=== PATIENT | male | born 1985 | race Caucasian/White ===

== ENCOUNTER → 2017-06-28 10:20 | Outpatient (CLI) | payer OTHER, SELFPAY ==
[2017-06-28 12:42] LABS: Absolute Lymphocyte Count 1.57 X10^3/ul (0.83-4.51); Basophil# 0.02 X10^3/uL; Basophil% 0.2 % (0-1); Eosinophil# 0.56 X10^3/uL; Eosinophils% 5.1 % (0-5); Hematocrit 41.9 % (40-54); Hemoglobin 13.7 g/dl (13.0-16.5); Lymphocyte # 1.57 X10^3/ul (4.0); Lymphocyte % 14.2 % (19-41); Mean Corp Hgb Conc 32.7 g/gl (32-36); Mean Corpuscular Hgb 27.7 pg (27.0-32.0); Mean Corpuscular Volume 84.8 fL (80-94); Mean Platelet Vol. 9.4 fl (6.2-12.0); Monocyte# 0.95 X10^3/uL; Monocyte% 8.6 % (0-10); Neutrophil # 7.95 X10^3/uL (2.7-7.7); Neutrophil % 71.6 % (47-70); Platelet Count 379 K/mm3 (150-450); RBC Distribution Width CV 13.3 % (11.6-14.6); RBC Distribution Width SD 40.8 fl (35.1-43.9); Red Blood Count 4.94 M/mm3 (4.6-6.2); White Blood Count 11.1 K/mm3 (4.4-11.0)
[2017-06-28 12:45] LABS: POSITIVE COUNT NO; POSITIVE DIFFERENTIAL NO; POSITIVE MORPHOLOGY NO
[2017-06-28 13:11] LABS: Vitamin B12 496 pg/mL (211-911)
[2017-06-28 13:24] LABS: ALB/GLOB Ratio 0.7 RATIO (0.9-2.4); AST(SGOT) 16 U/L (15-37); Alanine Aminotransfer ALT/SGPT 28 U/L (16-61); Albumin, Serum 3.4 g/dL (3.2-5.0); Alkaline Phosphatase 134 U/L (45-117); Anion Gap 6 (5-15); BUN 7 mg/dL (7-18); BUN/Creat Ratio 8.6 RATIO (10-20); Calcium,Total 9.1 mg/dL (8.5-10.1); Chloride 104 mmol/L (98-107); Cholesterol 156 mg/dL (200); Creatinine, Serum 0.82 mg/dL (0.70-1.30); EST Glomerular Filtration Rate 115 mL/min (>60); Est Glom Filt Rate - Afr Amer 139 mL/min (>60); Globulin 5.1 g/dL (2.2-4.2); Glucose 123 mg/dL (74-106); High Density Lipoprotein 28 mg/dL; Potassium 3.5 mmol/L (3.5-5.1); Protein, Total 8.5 g/dL (6.4-8.2); Sodium Level 138 mmol/L (136-145); Thyroid Stim Hormone (TSH) 1.81 uIU/mL (0.358-3.74); Triglycerides 103 mg/dL; Very Low Density Lipoprotein 21 mg/dL (5-40)
== END ==
PROVIDERS: Family Provider Family Medicine; PCP Family Medicine; Visit Provider Family Medicine
DX: K62.5 Hemorrhage of anus and rectum (principal); K50.90 Crohn's disease, unspecified, without complications; R53.83 Other fatigue; Z82.49 Family history of ischemic heart disease and other diseases of the circulatory system
CPT/HCPCS: 36415; 80053; 80061; 82306; 82607; 84443; 85025

== ENCOUNTER → 2017-08-30 16:37 | Outpatient (CLI) | payer OTHER, SELFPAY ==
--- NOTE | 2017-08-30 09:59 | COLBX_PTH ---
PATIENT: SE CARDONA LOC: [facility] U#:[id number] AGE/SX: 39/M ROOM: RE08/30/[address]: Dr. Aubrey Pineda MD : [id number] BED: DIS: SPEC #: [id number] RECD: 08/30/17 15:36 STATUS: DOMINGO FARR #: [id number] AIDA: 08/30/17 09:[address]: Aubrey Pineda DEPT: SURGICAL PATHOLOGY RECD BY: Randi Powell ENTERED: 09/02/17 11:25 SP TYPE: COLON BX OT DR: Dr. Alfonso Velásquez MD [facility] Tissues: Ileum, NOS Procedures: Surgery Specimen Level IV HEADER OPERATION: Colonoscopy with biopsy PRE-OP DIAGNOSIS: Rectal bleed TISSUE SUBMITTED: Ileocecal valve, rule out Crohn?s MICROSCOPIC DIAGNOSIS Ileocecal valve, biopsy: Fragments of colonic mucosa with focal ulceration, acute and chronic inflammation. Detached fragment of tissue with acute and chronic inflammation and granulation tissue reaction. See comment. VEL:maggie 09/03/17 COMMENT No obvious granulomas are seen. Correlation with clinical, endoscopic findings and appropriate follow up are necessary. MICROSCOPIC DESCRIPTION Slides are reviewed. GROSS DESCRIPTION Received in fixative is one container labeled with the patient's name and designated ileocecal valve. The specimen consists of multiple irregular fragments of light lyon soft tissue that in aggregate measure 0.5 x 0.5 x 0.1 cm. The specimen is totally submitted in one cassette. / VEL:maggie 09/02/17 TC:2 CPT: 73168
== END ==
PROVIDERS: Family Provider Family Medicine; PCP Family Medicine; Visit Provider Internal Medicine Gastroenterology
DX: K62.5 Hemorrhage of anus and rectum (principal)
CPT/HCPCS: 88305

== ENCOUNTER 2017-09-19 15:06 | Inpatient (IN) | payer OTHER, SELFPAY ==
[2017-09-19 15:06] VITALS: BP 113/86; PULSE 107; RESP 16; TEMP 36.6; O2SAT 98; BMI 25.7
--- NOTE | 2017-09-19 15:22 | CT_ITS ---
STUDY: CT ABDOMEN WITH CONTRAST REASON FOR EXAM: Male, 32 years old. Abdominal pain for 2 days. History of Crohn's disease. RADIATION DOSAGE (If Supplied By Facility): CTDIvol = ( 14.47 ) mGy, DLP = ( 848.89 ) mGycm TECHNIQUE: Transaxial images were obtained post I.V. administration of 100 ml of Isovue 300 contrast, and with oral contrast. Sagittal and coronal images were reconstructed. Individualized dose optimization techniques were used for this CT. COMPARISON: None. FINDINGS: Body wall soft tissues: Normal. Osseous structures: Slight scoliosis. Minimal spondylosis with multilevel small endplate Schmorl's nodes of the lower thoracic and lumbar spine. There is sclerosis on both the iliac and sacral sides of the SI joints bilaterally, consistent with sequela of sacroiliitis. 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 Inferior chest: No acute process. Hepatobiliary: Normal. Pancreas: Normal. Spleen: Multiple punctate calcifications consistent with old granulomatous disease. Adrenal glands: No acute process. Urogenital: Benign cyst of the left kidney about 1 cm. Symmetric nephrograms, normal cortical thickness. Normal collecting systems, ureters, urinary bladder, prostate and seminal vesicles. Pelvic floor and sidewalls and retroperitoneum: No mass or lymphadenopathy. Vasculature: Normal. Gastric: Normal. Small bowel: Diffusely mildly dilated small bowel from the jejunum to the terminal ileum. Marked circumferential thickening and inflammation of the wall of the terminal ileum. Terminal ileitis consistent with the history of Crohn's disease. Appendix: The PACS is visible with no acute appendicitis. Large bowel: There is very mild thickening of the wall of the sigmoid colon and rectum which are surrounded by creeping fat, without acute surrounding inflammatory induration. These features are most consistent with chronic sequela of colitis without definitive evidence of acute inflammation at this time. Difficult to exclude a low-grade inflammation in the sigmoid and rectum. Free fluid or free air: No free air. There is a small amount of ascites in the deep pelvis. CT/Abdomen/Pelvis WITH Contrast IMPRESSION: Acute ileitis of the terminal ileum. Inflammatory features of the rectosigmoid are mild, and probably chronic in appearance. Difficult to exclude mild inflammation in the rectosigmoid. Electronically Signed: Sotero Morales, at 17:35 EDT Tel , Service support ,
--- NOTE | 2017-09-19 15:24 | ED.VISSUMM ---
- ER Visit Summary Date of Service: 09/19/17 Chief Complaint: Abdominal pain History of Present Illness: The patient is a 32 M presenting with abdominal pain. Patient states it started yesterday. He was seen by his primary care physician today and sent to the emergency department for further evaluation. He had a colonoscopy per Dr. Pineda 2 weeks ago. He has a history of Crohn's disease. He is scheduled for a CT scan in 2 days. He states the CT scan was scheduled before he started having pain. He denies fever. He has nausea vomiting ?1. He has diarrhea. He denies blood in his stool. Denies other complaints. Physical Examination: Vitals are stable. Patient is afebrile. Alert no acute distress. HEENT exam is unremarkable. Neck is supple. Lungs are clear and equal bilaterally. Heart is regular and tachycardic Abdomen is soft diffuse tenderness, no rebound or guarding Extremities are unremarkable. Skin is warm and dry. Remainder of exam is unremarkable. Emergency Department Course and Treatment: Patient is given IV fluids, Zofran. Patient was given IV fluids, Zofran, Toradol. CBC shows white count of 15.7. Chemistries unremarkable. Alk phos 192. Lipase is 110. CT abdomen pelvis shows acute ileitis of the terminal ileum. Inflammatory features of the rectosigmoid are mild, and probably chronic in appearance. Difficult to exclude mild inflammation in the rectosigmoid. Patient continues to have pain. Discussed with the hospitalist for admission. Disposition: Admission Impression: Acute ileitis, history of Crohn's This note was generated with [employer] dictation software. It may contain incorrect words, spelling, and punctuation that were not noted in review of the chart prior to signing ED Disposition - Plan for ED Patient: Chief Complaint: Abd Pain Referrals: Alfonso Velásquez MD [Primary Care Provider] -
[2017-09-19] MEDS: Ondansetron 4 MG/2 ML Vial IV (15:36)
[2017-09-19] MEDS: 0.9% Normal Saline 1,000 ML 1000 ML IV (15:36)
[2017-09-19 15:47] LABS: Absolute Lymphocyte Count 1.36 X10^3/ul (0.83-4.51); Absolute Neutrophil Count 12.5 X10^3/uL (2.0-7.7); Basophil# 0.02 X10^3/uL; Basophil% 0.1 % (0-1); Eosinophils% 1.3 % (0-5); Hematocrit 46.3 % (40-54); Hemoglobin 15.1 g/dl (13.0-16.5); Lymphocyte # 1.36 X10^3/ul (4.0); Lymphocyte % 8.7 % (19-41); Mean Corp Hgb Conc 32.6 g/gl (32-36); Mean Corpuscular Hgb 27.8 pg (27.0-32.0); Mean Corpuscular Volume 85.3 fL (80-94); Mean Platelet Vol. 9.1 fl (6.2-12.0); Monocyte# 1.53 X10^3/uL; Monocyte% 9.8 % (0-10); Neutrophil # 12.54 X10^3/uL (2.7-7.7); Neutrophil % 79.8 % (47-70); Platelet Count 407 K/mm3 (150-450); RBC Distribution Width CV 14.2 % (11.6-14.6); RBC Distribution Width SD 43.9 fl (35.1-43.9); Red Blood Count 5.43 M/mm3 (4.6-6.2); White Blood Count 15.7 K/mm3 (4.4-11.0)
[2017-09-19 15:49] LABS: Differential Indicated SCAN CRITERIA MET; POSITIVE COUNT NO; POSITIVE DIFFERENTIAL YES; POSITIVE MORPHOLOGY NO
[2017-09-19 16:05] LABS: ALB/GLOB Ratio 0.6 RATIO (0.9-2.4); AST(SGOT) 20 U/L (15-37); Alanine Aminotransfer ALT/SGPT 60 U/L (16-61); Albumin, Serum 3.4 g/dL (3.2-5.0); Alkaline Phosphatase 192 U/L (45-117); Anion Gap 8 (5-15); BUN 11 mg/dL (7-18); BUN/Creat Ratio 14.1 RATIO (10-20); Chloride 103 mmol/L (98-107); Creatinine, Serum 0.78 mg/dL (0.70-1.30); EST Glomerular Filtration Rate 121 mL/min (>60); Est Glom Filt Rate - Afr Amer 146 mL/min (>60); Estimated Creatinine Clearance 146.47 ml/min; Globulin 5.3 g/dL (2.2-4.2); Glucose 92 mg/dL (74-106); Lipase 110 U/L (73-393); Potassium 3.9 mmol/L (3.5-5.1); Protein, Total 8.7 g/dL (6.4-8.2); Sodium Level 138 mmol/L (136-145)
[2017-09-19 16:29] LABS: Differential Comment SCANNED; Platelet Estimate ADEQUATE (ADEQ)
[2017-09-19 17:06] VITALS: BP 121/72; PULSE 85; RESP 16; O2SAT 98
[2017-09-19] MEDS: Ketorolac 30 MG/ML Syringe IV (18:41)
[2017-09-19 19:08] LABS: Bacteria 0 SEEN /hpf (None Seen); Mucous, Urine 0 SEEN /hpf (<or=2+); Red Blood Cells-Urine 0 SEEN /hpf (0-5); Squamous Epithelial Cells - UA 0 SEEN /hpf (0-5); White Blood Cells 0 SEEN /hpf (0-5)
[2017-09-19 19:13] LABS: Color, Urine Yellow (Yellow); Glucose, Dipstick Normal (Normal); Ketone-Dipstick 5 mg/dl (Negative); Leukocyte Esterase-Dipstick 25 /ul (Negative); Nitrite-Dipstick Negative (Negative); Occult Blood-Urine Negative /ul (Negative); Protein-Dipstick 15 mg/dl (Negative); Urine Bilirubin Dipstick Negative (Negative); Urine Clarity Clear (Clear); Urine Urobilinogen 1 mg/dl (Normal)
--- NOTE | 2017-09-19 19:32 | PCM.HP.STD ---
Problem List (1) Crohn's colitis Status: Acute (2) Dehydration Status: Acute (3) Tobacco abuse Status: Acute History of Present Illness Date of Admission: 09/19/17 Chief Complaint: Abdominal pain and multiple stools ?2 day. The patient is a 32 year old M who was diagnosed with Crohn's disease 2 weeks ago presenting with progressively worsening abdominal pain above his umbilical area. Associated with his symptoms is anorexia,nausea, vomiting and diarrhea. His vomitus is nonbloody. He has multiple loose stools every 30 minutes to [address] Pineda, GI, outpatient for Crohn disease and was scheduled to have a CAT scan. He is not on any outpatient medications yet for Crohn disease. He denies any fever, or chills. At emergency department he had a white count of 15.7. A CT scan of his abdomen and pelvis showed acute ileitis of the terminal ileum. His urinalysis shows some ketones. At emergency department he was given Toradol and morphine IV for pain. Past Medical History Medical History: Medical History (Last Updated 09/20/17 @ 01:59 by Salvador Estrada MD) Crohns disease K50.90 Allergies Tetanus Vaccines and Toxoid Allergy (Verified 09/19/17 15:09) Swelling Home Medications: Ambulatory Orders Medication Instructions Recorded Acetaminophen [Tylenol Extra 500 mg PO Q4H PRN PRN 09/19/17 Strength] Ergocalciferol [Vitamin D] 50,000 units PO QWEEK 09/19/17 Surgical History: no surgical history Psychiatric History: No pertinent psych hx Smoking Status: Current every day smoker Alcohol: None Drugs: None - *Family History Maternal History Items: Dementia Paternal History Items: Heart Disease Review of Systems Constitutional: Denies: Chills, Fever, Weight Change HEENT: Denies: Head Aches, Sinus Congestion, Sinus Drainage Cardiovascular: Denies: Chest Pain, Palpitations Respiratory: Denies: Cough, Shortness of breath at rest, Sputum production Gastrointestinal: Reports: Abdominal Pain, Diarrhea, Nausea, Vomiting Genitourinary: Denies: Dysuria Musculoskeletal: Denies: Joint Pain, Joint Tenderness Skin: Denies: Rash, Wounds Neurological: Denies: Numbness, Tingling, Focal weakness Psychiatric: Denies: Anxiety, Depression, Homicidal Ideations, Suicidal Ideations Hematologic/ Lymphatic: Denies: Easy Bruising, Easy Bleeding VTE Information - Inpt Only VTE Present on Admission: No VTE Mechan Device Prophylaxis: SCD's VTE Pharm Prophylaxis ordered?: No Reason prophylaxis not ordered:: Treatment Not Indicated Patient Problems: Active and Suspected Problems (Last Updated 09/20/17 @ 01:59 by Salvador Estrada MD) Crohn's colitis (Acute) Dehydration (Acute) Tobacco abuse (Acute) - Physical Exam General: Alert, Oriented x3, Cooperative HEENT: Atraumatic, PERRLA, EOMI, Normocephalic Neck: Supple, No JVD, Negative Carotid Bruits Lungs: Clear to auscultation Cardiovascular: Regular rate, No murmurs Abdomen: Bowel Sounds Present, Soft, Non Tender, Tender Extremities: No edema, Capillary Refill Less than 3 Seconds Skin: No rashes, No breakdown Musculoskeletal: No Tenderness to Palpation of Joints or Extremities Neurological: Cranial nerves II-XII grossly intact Psych/Mental Status: Normal Affect, Appropriate Vital Signs Temp Pulse Resp BP Pulse Ox 97.8 F 85 16 121/72 H 98 09/19/17 15:06 09/19/17 17:06 09/19/17 17:06 09/19/17 17:06 09/19/17 17:06 Oxygen Delivery Method Room Air Weight: 86.183 kg Body Mass Index (BMI) 25.7 Laboratory Tests Past 24 Hrs 09/19/17 09/19/17 09/19/17 15:35 15:35 19:00 WBC 15.7 H RBC 5.43 Hgb 15.1 Hct 46.3 MCV 85.3 MCH 27.8 MCHC 32.6 RDW 14.2 RDW Differential 43.9 Plt Count 407 MPV 9.1 Immature Gran % (Auto) 0.300 Neut % (Auto) 79.8 H Lymph % (Auto) 8.7 L [place] % (Auto) 9.8 Eos % (Auto) 1.3 Baso % (Auto) 0.1 Absolute Neuts (auto) 12.5 H Absolute Lymphs (auto) 1.36 Total Counted Not Reportable Differential Comment SCANNED Diff Path Review May foll Platelet Estimate ADEQUATE Sodium 138 Potassium 3.9 Chloride 103 Carbon Dioxide 27.0 Anion Gap 8 BUN 11 Creatinine 0.78 Estim Creat Clear Calc 146.47 Est GFR (MDRD) Af Amer 146 Est GFR (MDRD) Non-Af 121 BUN/Creatinine Ratio 14.1 Glucose 92 Calcium 9.0 Total Bilirubin 0.90 AST 20 ALT 60 Alkaline Phosphatase 192 H Total Protein 8.7 H Albumin 3.4 Globulin 5.3 H Albumin/Globulin Ratio 0.6 L Lipase 110 Urine Color Yellow Urine Clarity Clear Urine pH 5.0 Ur Specific [place] 1.010 Urine Protein 15 H Urine Glucose (UA) Normal Urine Ketones 5 H Urine Occult Blood Negative Urine Nitrite Negative Urine Bilirubin Negative Urine Urobilinogen 1 H Ur Leukocyte Esterase 25 H Urine RBC 0 SEEN Urine WBC 0 SEEN Ur Squamous Epith Cells 0 SEEN Urine Bacteria 0 SEEN Urine Mucus 0 SEEN Assessment/Plan All Active Problems (Last Updated 09/20/17 @ 01:59 by Salvador Estrada MD) Crohn's colitis (Acute) Dehydration (Acute) Tobacco abuse (Acute) The patient is a 32 year old M who was diagnosed with Crohn's disease 2 weeks ago presenting with progressively worsening abdominal pain, anorexia,nausea, vomiting and diarrhea; and radiographic findings of acute ileitis; leukocytosis and ketosis consistent with acute exacerbation of Crohn's disease; and dehydration. Acute agitation of Crohn disease Enteric pathogen for stool ordered. Solu-Medrol 125 given. Solu-Medrol 60 mg daily. As patient improves recommend a tapering steroid dose. In the long-term patient may need immunomodulators like TNF inhibitors. However this can be deferred to his GI doctor upon discharge. Supportive treatment with IV fluids, morphine and Zofran. Clear liquids for diet for now. Elevated alkaline phosphatase Likely due to Crohn disease We will treat acute flare at this time and patient to follow up with GI upon discharge. Leukocytosis Likely secondary to inflammation from Crohn disease. Dehydration IV fluid hydration as above Tobacco abuse Counselled DVT prophylaxis SCD. This note was generated with [employer] software. It may contain incorrect words, spelling, and punctuation that were not noted before signingthe note. .. Code Visit Inpatient E&M: 74387 Init Hosp L3
[2017-09-19 19:45] VITALS: BP 100/63; PULSE 77; RESP 14; O2SAT 97
[2017-09-19 20:47] VITALS: BMI 24.8
[2017-09-19 20:51] VITALS: BMI 24.9
[2017-09-19] MEDS: 0.9% Normal Saline 1,000 ML 75 ML IV (21:18)
[2017-09-19] MEDS: MethylPREDNISolone 125 MG/2 ML Vial IV (21:18)
[2017-09-19 21:29] VITALS: O2SAT 97
[2017-09-19 21:30] VITALS: BP 109/75; PULSE 65; RESP 18; TEMP 36.9; O2SAT 97
[2017-09-20 03:30] VITALS: BP 110/64; PULSE 60; RESP 16; TEMP 36.4; O2SAT 96
[2017-09-20 06:39] LABS: Absolute Lymphocyte Count 0.85 X10^3/ul (0.83-4.51); Absolute Neutrophil Count 11.3 X10^3/uL (2.0-7.7); Basophil# 0.01 X10^3/uL; Basophil% 0.1 % (0-1); Eosinophil# 0.01 X10^3/uL; Eosinophils% 0.1 % (0-5); Hematocrit 40.9 % (40-54); Hemoglobin 13.2 g/dl (13.0-16.5); Lymphocyte # 0.85 X10^3/ul (4.0); Lymphocyte % 6.9 % (19-41); Mean Corp Hgb Conc 32.3 g/gl (32-36); Mean Corpuscular Hgb 27.2 pg (27.0-32.0); Mean Corpuscular Volume 84.3 fL (80-94); Monocyte# 0.12 X10^3/uL; Neutrophil # 11.29 X10^3/uL (2.7-7.7); Neutrophil % 91.8 % (47-70); POSITIVE COUNT NO; POSITIVE DIFFERENTIAL NO; POSITIVE MORPHOLOGY NO; Platelet Count 388 K/mm3 (150-450); RBC Distribution Width CV 13.7 % (11.6-14.6); RBC Distribution Width SD 42.3 fl (35.1-43.9); Red Blood Count 4.85 M/mm3 (4.6-6.2); White Blood Count 12.3 K/mm3 (4.4-11.0)
[2017-09-20 06:59] LABS: Anion Gap 5 (5-15); BUN 15 mg/dL (7-18); BUN/Creat Ratio 21.7 RATIO (10-20); Calcium,Total 8.4 mg/dL (8.5-10.1); Chloride 107 mmol/L (98-107); Creatinine, Serum 0.69 mg/dL (0.70-1.30); EST Glomerular Filtration Rate 139 mL/min (>60); Est Glom Filt Rate - Afr Amer 168 mL/min (>60); Estimated Creatinine Clearance 165.57 ml/min; Glucose 135 mg/dL (74-106); Potassium 4.3 mmol/L (3.5-5.1); Sodium Level 138 mmol/L (136-145)
[2017-09-20 07:10] VITALS: O2SAT 95
[2017-09-20 07:40] VITALS: BP 101/62; PULSE 75; RESP 16; TEMP 36.5; O2SAT 97
--- NOTE | 2017-09-20 09:18 | PCM.PN.HOSP ---
Patient Problems: Active and Suspected Problems (Last Updated 09/20/17 @ 01:59 by Slavador Estrada MD) Crohn's colitis (Acute) Dehydration (Acute) Tobacco abuse (Acute) Subjective: Patient is a 32-year-old male who was recently diagnosed with Crohn's disease 2 days ago. Was admitted with a complaint of progressively worsening abdominal pain with assisted anorexia, nausea, vomiting and diarrhea. She has had several episodes of diarrhea which are nonbloody. He had been scheduled to have a CAT scan but had not yet had it. The ED, white cell count was elevated at 15.[address] of the abdomen showed acute cellulitis of the terminal ileum. He was started on IV Toradol and morphine for pain and to manage for acute flareup of Crohn's disease. He was started on IV Solu-Medrol. Patient seen and examined this morning. He feels much better. Had just like one episode of diarrhea this admission to the floor last night. Denies any fever or chills, any cough or chest pain, shortness of breath, and abdominal pain has resolved. 12 point Review of systems otherwise negative. Labs and vitals reviewed. Vitals/I&O's: Vital Signs Temp Pulse Resp BP Pulse Ox 97.7 F L 75 16 101/62 97 09/20/17 07:40 09/20/17 07:40 09/20/17 07:40 09/20/17 07:40 09/20/17 07:40 Oxygen Delivery Method Room Air Weight: 183 lb 6.793 oz Body Mass Index (BMI) 24.8 Intake and Output for Last 24 Hours 09/18/17 09/19/17 09/20/17 23:59 23:59 23:59 Intake Total 1135 / 1135 Balance 1135 / 1135 General: Alert, Oriented x3, Cooperative, No apparent distress HEENT: Atraumatic, PERRLA, EOMI, Normocephalic Oral: Moist Mucosa Neck: Supple, No JVD, Negative Carotid Bruits Lungs: Clear to auscultation, Normal air movement, No rhonchi, No wheeze, No rales Cardiovascular: Regular rate, Regular Rhythm, Normal S1, Normal S2, No murmurs Abdomen: Bowel Sounds Present, Soft, Non Tender, No Hepato-splenomegaly, Passing Flatus, - - mildly distended Extremities: No clubbing, No cyanosis, No edema, Capillary Refill Less than 3 Seconds Skin: No rashes, No breakdown Musculoskeletal: No Tenderness to Palpation of Joints or Extremities Neurological: Cranial nerves II-XII grossly intact, Motor Exam 5/5 strength throughout Psych/Mental Status: Normal Affect, Appropriate, Alert and oriented to time, place, person, mood and affect Laboratory Results 09/20/17 06:17: WBC 12.3 H, RBC 4.85, Hgb 13.2, Hct 40.9, MCV 84.3, MCH 27.2, MCHC 32.3, RDW 13.7, RDW Differential 42.3, Plt Count 388, MPV 9.0, Immature Gran % (Auto) 0.100, Neut % (Auto) 91.8 H, Lymph % (Auto) 6.9 L, [place] % (Auto) 1.0, Eos % (Auto) 0.1, Baso % (Auto) 0.1, Absolute Neuts (auto) 11.3 H, Absolute Lymphs (auto) 0.85, Total Counted Not Reportable 09/20/17 06:17: Sodium 138, Potassium 4.3, Chloride 107, Carbon Dioxide 26.0, Anion Gap 5, BUN 15, Creatinine 0.69 L, Estim Creat Clear Calc 165.57, Est GFR (MDRD) Af Amer 168, Est GFR (MDRD) Non-Af 139, BUN/Creatinine Ratio 21.7 H, Glucose 135 H, Calcium 8.4 L Diagnostic Data Abdomen/Pelvis CT 09/19/17 15:22 IMPRESSION: Acute ileitis of the terminal ileum. Inflammatory features of the rectosigmoid are mild, and probably chronic in appearance. Difficult to exclude mild inflammation in the rectosigmoid. Electronically Signed: Sotero Morales, at 17:35 EDT Tel , Service support , Current Medications Acetaminophen (Tylenol) 500 mg PO Q4H PRN PRN PRN Reason: PAIN Sodium Chloride () 1,000 mls @ 75 mls/hr IV .[id number] ANNETTE Stop: 09/20/17 10:05 Last Admin: 09/19/17 21:18 Dose: 75 mls/hr Methylprednisolone (Solu-Medrol) 60 mg IV DAILY ANNETTE Morphine Sulfate () 1 - 2 mg IV Q4H PRN PRN PRN Reason: PAIN Ondansetron HCl (Zofran) 4 mg IV Q6H PRN PRN PRN Reason: NAUSEA/VOMITING Pantoprazole Sodium (Protonix) 40 mg PO DAILY ANNETTE Sodium Chloride () 5 - 30 ml IV UD PRN PRN Reason: SALINE FLUSH Medical Necessity - Tobacco Use Smoking Status: Current every day smoker Assessment/Plan All Active Problems (Last Updated 09/20/17 @ 01:59 by Salvador Estrada MD) Crohn's colitis (Acute) Dehydration (Acute) Tobacco abuse (Acute) 1. Acute flareup of Crohn's disease resolving. Has had only one episode of diarrhea since admission to floor CT abdomen: Acute ileitis of the terminal ileum with inflammatory changes of the rectosigmoid being mild and chronic in appearance. on IV solumerol 60mg daily to switch to tapering dose of steroids once he improves to follow up with GI doctor upon discharge tolerated clear fluids overnight. white cell count trended down to 12.3 from 15.7 stool enteric pathogens pending no recent history of antibiotics,a nd diarrhea has virtually resolved; to order C DIff screen if diarrhea recurs. continue resuscitation with IVF NS; on IV zofran for nausea and vomiting. 2. Dehydration due to diarrhea Resolving. Patient been hydrated with IV fluids. Tolerated clear liquid diet. Will advance diet as tolerated and if heTolerates a regular diet, we will stop IV fluids. continue IVF 3.elevated alkaline phosphatase ALP was 192 on admission; previous ALP in EMR was 134 will trend and monitor. May be due to Crohn's disease. Liver enzymes are otherwise WNL 4. DVT prophylaxis: SCDs 5. GI prophylaxis: pantoprazole CODE STATUS: Full code This note was generated with [employer] software. It may contain incorrect words, spelling, and punctuation that were not noted in checking the note before signing. Code Visit Inpatient E&M: 64655 Subs Hosp L3
--- NOTE | 2017-09-20 09:23 | PN_ITS ---
Patient Problems: Active and Suspected Problems (Last Updated 09/20/17 @ 01:59 by Salvador Estrada MD) Crohn's colitis (Acute) Dehydration (Acute) Tobacco abuse (Acute) Subjective: Patient is a 32-year-old male who was recently diagnosed with Crohn's disease 2 days ago. Was admitted with a complaint of progressively worsening abdominal pain with assisted anorexia, nausea, vomiting and diarrhea. She has had several episodes of diarrhea which are nonbloody. He had been scheduled to have a CAT scan but had not yet had it. The ED, white cell count was elevated at 15.[address] of the abdomen showed acute cellulitis of the terminal ileum. He was started on IV Toradol and morphine for pain and to manage for acute flareup of Crohn's disease. He was started on IV Solu-Medrol. Patient seen and examined this morning. He feels much better. Had just like one episode of diarrhea this admission to the floor last night. Denies any fever or chills, any cough or chest pain, shortness of breath, and abdominal pain has resolved. 12 point Review of systems otherwise negative. Labs and vitals reviewed. Vitals/I&O's: Vital Signs Temp Pulse Resp BP Pulse Ox 97.7 F L 75 16 101/62 97 09/20/17 07:40 09/20/17 07:40 09/20/17 07:40 09/20/17 07:40 09/20/17 07:40 Oxygen Delivery Method Room Air Weight: 183 lb 6.793 oz Body Mass Index (BMI) 24.8 Intake and Output for Last 24 Hours 09/18/17 09/19/17 09/20/17 23:59 23:59 23:59 Intake Total 1135 / 1135 Balance 1135 / 1135 General: Alert, Oriented x3, Cooperative, No apparent distress HEENT: Atraumatic, PERRLA, EOMI, Normocephalic Oral: Moist Mucosa Neck: Supple, No JVD, Negative Carotid Bruits Lungs: Clear to auscultation, Normal air movement, No rhonchi, No wheeze, No rales Cardiovascular: Regular rate, Regular Rhythm, Normal S1, Normal S2, No murmurs Abdomen: Bowel Sounds Present, Soft, Non Tender, No Hepato-splenomegaly, Passing Flatus, - - mildly distended Extremities: No clubbing, No cyanosis, No edema, Capillary Refill Less than 3 Seconds Skin: No rashes, No breakdown Musculoskeletal: No Tenderness to Palpation of Joints or Extremities Neurological: Cranial nerves II-XII grossly intact, Motor Exam 5/5 strength throughout Psych/Mental Status: Normal Affect, Appropriate, Alert and oriented to time, place, person, mood and affect Laboratory Results 09/20/17 06:17: WBC 12.3 H, RBC 4.85, Hgb 13.2, Hct 40.9, MCV 84.3, MCH 27.2, MCHC 32.3, RDW 13.7, RDW Differential 42.3, Plt Count 388, MPV 9.0, Immature Gran % (Auto) 0.100, Neut % (Auto) 91.8 H, Lymph % (Auto) 6.9 L, [place] % (Auto) 1.0, Eos % (Auto) 0.1, Baso % (Auto) 0.1, Absolute Neuts (auto) 11.3 H, Absolute Lymphs (auto) 0.85, Total Counted Not Reportable 09/20/17 06:17: Sodium 138, Potassium 4.3, Chloride 107, Carbon Dioxide 26.0, Anion Gap 5, BUN 15, Creatinine 0.69 L, Estim Creat Clear Calc 165.57, Est GFR ( MDRD) Af Amer 168, Est GFR (MDRD) Non-Af 139, BUN/Creatinine Ratio 21.7 H, Glucose 135 H, Calcium 8.4 L Diagnostic Data Abdomen/Pelvis CT 09/19/17 15:22 IMPRESSION: Acute ileitis of the terminal ileum. Inflammatory features of the rectosigmoid are mild, and probably chronic in appearance. Difficult to exclude mild inflammation in the rectosigmoid. Electronically Signed: Sotero Morales, at 17:35 EDT Tel , Service support , Current Medications Acetaminophen (Tylenol) 500 mg PO Q4H PRN PRN PRN Reason: PAIN Sodium Chloride () 1,000 mls @ 75 mls/hr IV .[id number] ANNETTE Stop: 09/20/17 10:05 Last Admin: 09/19/17 21:18 Dose: 75 mls/hr Methylprednisolone (Solu-Medrol) 60 mg IV DAILY ANNETTE Morphine Sulfate () 1 - 2 mg IV Q4H PRN PRN PRN Reason: PAIN Ondansetron HCl (Zofran) 4 mg IV Q6H PRN PRN PRN Reason: NAUSEA/VOMITING Pantoprazole Sodium (Protonix) 40 mg PO DAILY ANNETTE Sodium Chloride () 5 - 30 ml IV UD PRN PRN Reason: SALINE FLUSH Medical Necessity - Tobacco Use Smoking Status: Current every day smoker Assessment/Plan All Active Problems (Last Updated 09/20/17 @ 01:59 by Salvador Estrada MD) Crohn's colitis (Acute) Dehydration (Acute) Tobacco abuse (Acute) 1. Acute flareup of Crohn's disease * resolving. Has had only one episode of diarrhea since admission to floor * CT abdomen: Acute ileitis of the terminal ileum with inflammatory changes of the rectosigmoid being mild and chronic in appearance. * on IV solumerol 60mg daily * to switch to tapering dose of steroids once he improves * to follow up with GI doctor upon discharge * tolerated clear fluids overnight. white cell count trended down to 12.3 from 15.7 * stool enteric pathogens pending * no recent history of antibiotics,a nd diarrhea has virtually resolved; to order C DIff screen if diarrhea recurs. * continue resuscitation with IVF NS; on IV zofran for nausea and vomiting. * 2. Dehydration due to diarrhea * Resolving. Patient been hydrated with IV fluids. Tolerated clear liquid diet. Will advance diet as tolerated and if heTolerates a regular diet, we will stop IV fluids. * continue IVF * 3.elevated alkaline phosphatase * ALP was 192 on admission; previous ALP in EMR was 134 * will trend and monitor. May be due to Crohn's disease. Liver enzymes are otherwise WNL * 4. DVT prophylaxis: SCDs 5. GI prophylaxis: pantoprazole CODE STATUS: Full code This note was generated with [employer] software. It may contain incorrect words, spelling, and punctuation that were not noted in checking the note before signing. * Code Visit Inpatient E&M: 18885 Subs Hosp L3
[2017-09-20] MEDS: Pantoprazole Sodium 40 MG Tablet PO (09:34)
[2017-09-20] MEDS: MethylPREDNISolone 125 MG/2 ML Vial 60 MG IV (09:36)
[2017-09-20] MEDS: 0.9% NaCl Peripheral Flush Adult/Peds IV ×2 (09:38→20:12)
[2017-09-20 11:18] LABS: Alkaline Phosphatase 153 U/L (45-117)
--- NOTE | 2017-09-20 12:10 | CASEMGMT ---
RN CM Face to Face with patient for initial transition planning/care coordination assessment. RN CM introduced self and role at [facility]. Patient lying in bed, alert and oriented. Patient willing to participate in assessment and is able to answer all questions appropriately. Care providers, pharmacy, and demographics verified. Patient lives with in split level home and is able to navigate stairs. Patient is independent, drives self. Patient denies need for DME at this time. Patient wishes to discharge home, denies need for home health at this time. Patient states he has no further needs or concerns at this time. CM to follow for discharge planning needs that may arise. Disposition Plan: Patient to discharge home with family support and follow-up plans in place.
[2017-09-20] MEDS: Acetaminophen 500 MG Tablet PO ×2 (12:16→20:11)
[2017-09-20 13:41] VITALS: BP 117/67; PULSE 81; RESP 18; TEMP 36.7; O2SAT 97
[2017-09-20 20:00] VITALS: BP 120/68; PULSE 64; RESP 16; TEMP 36.8; O2SAT 100
[2017-09-20] MEDS: Ondansetron 4 MG/2 ML Vial IV (20:12)
[2017-09-21 02:00] VITALS: BP 110/64; PULSE 58; RESP 16; TEMP 37.1; O2SAT 97
[2017-09-21 07:06] LABS: Absolute Lymphocyte Count 1.67 X10^3/ul (0.83-4.51); Absolute Neutrophil Count 12.3 X10^3/uL (2.0-7.7); Basophil# 0.01 X10^3/uL; Basophil% 0.1 % (0-1); Eosinophil# 0.02 X10^3/uL; Eosinophils% 0.1 % (0-5); Hematocrit 38.7 % (40-54); Lymphocyte # 1.67 X10^3/ul (4.0); Lymphocyte % 10.4 % (19-41); Mean Corp Hgb Conc 33.6 g/gl (32-36); Mean Corpuscular Hgb 28.3 pg (27.0-32.0); Mean Corpuscular Volume 84.3 fL (80-94); Mean Platelet Vol. 9.2 fl (6.2-12.0); Monocyte# 2.08 X10^3/uL; Monocyte% 12.9 % (0-10); Neutrophil # 12.27 X10^3/uL (2.7-7.7); Neutrophil % 76.1 % (47-70); Platelet Count 450 K/mm3 (150-450); RBC Distribution Width CV 13.6 % (11.6-14.6); RBC Distribution Width SD 41.4 fl (35.1-43.9); Red Blood Count 4.59 M/mm3 (4.6-6.2); White Blood Count 16.1 K/mm3 (4.4-11.0)
[2017-09-21 07:07] LABS: Differential Indicated SCAN CRITERIA MET; POSITIVE COUNT NO; POSITIVE DIFFERENTIAL YES; POSITIVE MORPHOLOGY NO
[2017-09-21 07:26] LABS: ALB/GLOB Ratio 0.7 RATIO (0.9-2.4); AST(SGOT) 14 U/L (15-37); Alanine Aminotransfer ALT/SGPT 34 U/L (16-61); Albumin, Serum 2.8 g/dL (3.2-5.0); Alkaline Phosphatase 133 U/L (45-117); Anion Gap 10 (5-15); BUN 14 mg/dL (7-18); BUN/Creat Ratio 18.9 RATIO (10-20); Calcium,Total 8.5 mg/dL (8.5-10.1); Chloride 105 mmol/L (98-107); Creatinine, Serum 0.74 mg/dL (0.70-1.30); EST Glomerular Filtration Rate 128 mL/min (>60); Est Glom Filt Rate - Afr Amer 155 mL/min (>60); Estimated Creatinine Clearance 154.38 ml/min; Globulin 4.2 g/dL (2.2-4.2); Glucose 94 mg/dL (74-106); Potassium 4.1 mmol/L (3.5-5.1); Sodium Level 141 mmol/L (136-145)
[2017-09-21 07:29] LABS: Differential Comment SCANNED
[2017-09-21 07:30] VITALS: O2SAT 94
--- NOTE | 2017-09-21 08:10 | PCM.PN.HOSP ---
Patient Problems: Active and Suspected Problems (Last Updated 09/20/17 @ 01:59 by Salvador Estrada MD) Crohn's colitis (Acute) Dehydration (Acute) Tobacco abuse (Acute) Subjective: tolerated food yesterday, except a grilled cheese sandwich. abdominal pain improved. still with diarrhea. Vitals/I&O's: Vital Signs Temp Pulse Resp BP Pulse Ox 37.1 C 58 L 16 110/64 97 09/21/17 02:00 09/21/17 02:00 09/21/17 02:00 09/21/17 02:00 09/21/17 02:00 Oxygen Delivery Method Room Air Weight: 83.2 kg Body Mass Index (BMI) 24.8 Intake and Output for Last 24 Hours 09/19/17 09/20/17 09/21/17 23:59 23:59 23:59 Intake Total 2210 / 2210 Balance 2210 / 2210 General: Alert, No apparent distress HEENT: Atraumatic, Normocephalic Oral: Moist Mucosa, No Gingival or Mucosal Lesions/ Ulcerations Neck: No Nodes, Thyroid Normal Size and Texture Lungs: Clear to auscultation, Normal air movement, No rhonchi, No wheeze Cardiovascular: Regular rate, Regular Rhythm, Normal S1, Normal S2 Abdomen: Bowel Sounds Present, Soft, Non Tender, Distended Extremities: No edema, No Calf Tenderness Skin: No rashes, No breakdown Psych/Mental Status: Normal Affect, Appropriate Microbiology Past 72 Hours 09/20/17 08:10 Stool Enteric Bacteriology - Final Laboratory Results 09/20/17 06:17: Alkaline Phosphatase 153 H 09/21/17 06:28: Sodium 141, Potassium 4.1, Chloride 105, Carbon Dioxide 26.0, Anion Gap 10, BUN 14, Creatinine 0.74, Estim Creat Clear Calc 154.38, Est GFR (MDRD) Af Amer 155, Est GFR (MDRD) Non-Af 128, BUN/Creatinine Ratio 18.9, Glucose 94, Calcium 8.5, Total Bilirubin 0.40, AST 14 L, ALT 34, Alkaline Phosphatase 133 H, Total Protein 7.0, Albumin 2.8 L, Globulin 4.2, Albumin/Globulin Ratio 0.7 L 09/21/17 06:36: WBC 16.1 H, RBC 4.59 L, Hgb 13.0, Hct 38.7 L, MCV 84.3, MCH 28.3, MCHC 33.6, RDW 13.6, RDW Differential 41.4, Plt Count 450, MPV 9.2, Immature Gran % (Auto) 0.400, Neut % (Auto) 76.1 H, Lymph % (Auto) 10.4 L, Yell % (Auto) 12.9 H, Eos % (Auto) 0.1, Baso % (Auto) 0.1, Absolute Neuts (auto) 12.3 H, Absolute Lymphs (auto) 1.67, Total Counted Not Reportable, Differential Comment SCANNED Current Medications Acetaminophen (Tylenol) 500 mg PO Q4H PRN PRN PRN Reason: PAIN Last Admin: 09/20/17 20:11 Dose: 500 mg Methylprednisolone (Solu-Medrol) 60 mg IV DAILY [facility] Last Admin: 09/20/17 09:36 Dose: 60 mg Morphine Sulfate () 1 - 2 mg IV Q4H PRN PRN PRN Reason: PAIN Ondansetron HCl (Zofran) 4 mg IV Q6H PRN PRN PRN Reason: NAUSEA/VOMITING Last Admin: 09/20/17 20:12 Dose: 4 mg Pantoprazole Sodium (Protonix) 40 mg PO DAILY [facility] Last Admin: 09/20/17 09:34 Dose: 40 mg Sodium Chloride () 5 - 30 ml IV UD PRN PRN Reason: SALINE FLUSH Last Admin: 09/20/17 20:12 Dose: 10 ml Medical Necessity - Tobacco Use Smoking Status: Current every day smoker Assessment/Plan All Active Problems (Last Updated 09/20/17 @ 01:59 by Salvador Estrada MD) Crohn's colitis (Acute) Dehydration (Acute) Tobacco abuse (Acute) 1. acute crohn's flare improved change steroids to prednisone 40 and taper by 10 mg/week follow up with Dr. Pineda in 2-3 weeks to see if taper should be longer than 1 month. pain control, anti-emetics discussed with patient the side effects of steroid (including, but not limited to, fluid retention, increased energy and appetitie, osteoporosis, DM) DC home today if tolerates breakfast.
--- NOTE | 2017-09-21 08:14 | PN_ITS ---
Patient Problems: Active and Suspected Problems (Last Updated 09/20/17 @ 01:59 by Salvador Estrada MD) Crohn's colitis (Acute) Dehydration (Acute) Tobacco abuse (Acute) Subjective: tolerated food yesterday, except a grilled cheese sandwich. abdominal pain improved. still with diarrhea. Vitals/I&O's: Vital Signs Temp Pulse Resp BP Pulse Ox 37.1 C 58 L 16 110/64 97 09/21/17 02:00 09/21/17 02:00 09/21/17 02:00 09/21/17 02:00 09/21/17 02:00 Oxygen Delivery Method Room Air Weight: 83.2 kg Body Mass Index (BMI) 24.8 Intake and Output for Last 24 Hours 09/19/17 09/20/17 09/21/17 23:59 23:59 23:59 Intake Total 2210 / 2210 Balance 2210 / 2210 General: Alert, No apparent distress HEENT: Atraumatic, Normocephalic Oral: Moist Mucosa, No Gingival or Mucosal Lesions/ Ulcerations Neck: No Nodes, Thyroid Normal Size and Texture Lungs: Clear to auscultation, Normal air movement, No rhonchi, No wheeze Cardiovascular: Regular rate, Regular Rhythm, Normal S1, Normal S2 Abdomen: Bowel Sounds Present, Soft, Non Tender, Distended Extremities: No edema, No Calf Tenderness Skin: No rashes, No breakdown Psych/Mental Status: Normal Affect, Appropriate Microbiology Past 72 Hours 09/20/17 08:10 Stool Enteric Bacteriology - Final Laboratory Results 09/20/17 06:17: Alkaline Phosphatase 153 H 09/21/17 06:28: Sodium 141, Potassium 4.1, Chloride 105, Carbon Dioxide 26.0, Anion Gap 10, BUN 14, Creatinine 0.74, Estim Creat Clear Calc 154.38, Est GFR ( MDRD) Af Amer 155, Est GFR (MDRD) Non-Af 128, BUN/Creatinine Ratio 18.9, Glucose 94, Calcium 8.5, Total Bilirubin 0.40, AST 14 L, ALT 34, Alkaline Phosphatase 133 H, Total Protein 7.0, Albumin 2.8 L, Globulin 4.2, Albumin/ Globulin Ratio 0.7 L 09/21/17 06:36: WBC 16.1 H, RBC 4.59 L, Hgb 13.0, Hct 38.7 L, MCV 84.3, MCH 28.3 , MCHC 33.6, RDW 13.6, RDW Differential 41.4, Plt Count 450, MPV 9.2, Immature Gran % (Auto) 0.400, Neut % (Auto) 76.1 H, Lymph % (Auto) 10.4 L, [place] % (Auto) 12.9 H, Eos % (Auto) 0.1, Baso % (Auto) 0.1, Absolute Neuts (auto) 12.3 H, Absolute Lymphs (auto) 1.67, Total Counted Not Reportable, Differential Comment SCANNED Current Medications Acetaminophen (Tylenol) 500 mg PO Q4H PRN PRN PRN Reason: PAIN Last Admin: 09/20/17 20:11 Dose: 500 mg Methylprednisolone (Solu-Medrol) 60 mg IV DAILY [facility] Last Admin: 09/20/17 09:36 Dose: 60 mg Morphine Sulfate () 1 - 2 mg IV Q4H PRN PRN PRN Reason: PAIN Ondansetron HCl (Zofran) 4 mg IV Q6H PRN PRN PRN Reason: NAUSEA/VOMITING Last Admin: 09/20/17 20:12 Dose: 4 mg Pantoprazole Sodium (Protonix) 40 mg PO DAILY [facility] Last Admin: 09/20/17 09:34 Dose: 40 mg Sodium Chloride () 5 - 30 ml IV UD PRN PRN Reason: SALINE FLUSH Last Admin: 09/20/17 20:12 Dose: 10 ml Medical Necessity - Tobacco Use Smoking Status: Current every day smoker Assessment/Plan All Active Problems (Last Updated 09/20/17 @ 01:59 by Salvador Estrada MD) Crohn's colitis (Acute) Dehydration (Acute) Tobacco abuse (Acute) 1. acute crohn's flare * improved * change steroids to prednisone 40 and taper by 10 mg/week * follow up with Dr. Pineda in 2-3 weeks to see if taper should be longer than 1 month. * pain control, anti-emetics * discussed with patient the side effects of steroid (including, but not limited to, fluid retention, increased energy and appetitie, osteoporosis, DM) * DC home today if tolerates breakfast.
--- NOTE | 2017-09-21 08:21 | PCM.WORK.EX ---
Work/School Excuse Work/School Excuse for:: Patient Please excuse this person from:: Work From: 09/19/17 through: 09/25/17
--- NOTE | 2017-09-21 08:24 | DCINST_ITS ---
- Discharge Diagnoses Current Active Problems: Current Active and Chronic Problems (Last Updated 09/20/17 @ 01:59 by Salvador Estrada MD) Crohn's colitis (Acute) Dehydration (Acute) Tobacco abuse (Acute) You will use the following diet at home:: Regular - bland, advance as tolerated Your food should be the consistency of: Regular Your liquids should be the consistency of: Regular/Thin Discharge Activity: Return to Normal Activity, May not drive while taking narcotic pain medications., - - May not work while taking narcotics. Return to work on:: 09/26/17 Call your doctor if you observe: Fever of 101 or Higher, - - worsening abdominal pain. blood in stool. Allergies/Adverse Reactions: Allergies Tetanus Vaccines and Toxoid Allergy (Verified 09/19/17 15:09) Swelling Medications to take at Discharge Acetaminophen [Tylenol] 500 mg PO Q4H PRN PRN 09/19/17 Ergocalciferol [Vitamin D] 50,000 units PO QWEEK 09/19/17 Ibuprofen 2 - 3 mg PO Q6H PRN #1 tab 09/21/17 Ondansetron HCl [Zofran] 8 mg PO TID PRN #30 tab 09/21/17 Oxycodone [Oxyir] 5 mg PO Q4H PRN PRN 3 Days #18 tablet 09/21/17 Prednisone 1 tab PO DAILY #70 tab 09/21/17 The following prescriptions were given: Oxycodone [Oxyir] 5 mg PO Q4H PRN PRN 3 Days #18 tablet PRN Reason: Breakthrough Pain (>4/10) Prednisone 1 tab PO DAILY #70 tab Ibuprofen 2 - 3 mg PO Q6H PRN #1 tab PRN Reason: Pain Ondansetron HCl [Zofran] 8 mg PO TID PRN #30 tab PRN Reason: nausea and vomiting Primary Care Physician: Alfonso Velásqeuz MD [Primary Care Provider] - Within 2 Weeks Test Results: Test results from this visit will be discussed in further detail at your follow- up appointment, if applicable. Please Follow Up With: Aubrey Pineda MD When: 2-3 weeks Proposed Discharge Date: 09/21/17
--- NOTE | 2017-09-21 08:24 | PCM.DC.SUM ---
Discharge Date and Diagnosis - Problem List Patient Problems: Active and Suspected Problems (Last Updated 09/20/17 @ 01:59 by Salvador Estrada MD) Crohn's colitis (Acute) Dehydration (Acute) Tobacco abuse (Acute) Date of Admission: 09/19/17 Date of Discharge: 09/21/17 - Primary Discharge Diagnosis Active and Suspected Problems (Last Updated 09/20/17 @ 01:59 by Salvador Estrada MD) Crohn's colitis (Acute) Dehydration (Acute) Tobacco abuse (Acute) Hospital Course and Treatment Imaging Results: Clinical Impression(s) from Imaging Studies Abdomen/Pelvis CT 09/19/17 15:22 IMPRESSION: Acute ileitis of the terminal ileum. Inflammatory features of the rectosigmoid are mild, and probably chronic in appearance. Difficult to exclude mild inflammation in the rectosigmoid. Electronically Signed: Sotero Morales, at 17:35 EDT Tel , Service support , Operations: None Procedures: None Summary of Care Provided: The patient is a 32 year old M who is recently diagnosed with Crohn's disease presents with progressively worsening abdominal pain. Patient had a CAT scan that showed inflammation of his terminal ileum. Patient was diagnosed with acute Crohn's flare started on Solu-Medrol. Patient has steadily improved during the course of his hospitalization. Still having diarrhea and some abdominal distention but is tolerating diet. Patient will be changed over to prednisone 40 mg daily with prescribed taper of 10 mg per week until off. Patient certainly follow-up with Dr. Pineda in the next 2-3 weeks. [] Discharge Diet: - - bland, advance as tolerated. Discharge Activity: Return to Normal Activity, May not drive while taking narcotic pain medications., - - May not work while taking narcotics. Return to work on:: 09/26/17 Call your doctor if you observe: Fever of 101 or Higher, - - worsening abdominal pain. blood in stool. Home Medications: Medications to take at Discharge Acetaminophen [Tylenol] 500 mg PO Q4H PRN PRN 09/19/17 Ergocalciferol [Vitamin D] 50,000 units PO QWEEK 09/19/17 Ibuprofen 2 - 3 mg PO Q6H PRN #1 tab 09/21/17 Ondansetron HCl [Zofran] 8 mg PO TID PRN #30 tab 09/21/17 Oxycodone [Oxyir] 5 mg PO Q4H PRN PRN 3 Days #18 tablet 09/21/17 Prednisone 1 tab PO DAILY #70 tab 09/21/17 Following Prescrptions Were Given to Patient: Oxycodone [Oxyir] 5 mg PO Q4H PRN PRN 3 Days #18 tablet PRN Reason: Breakthrough Pain (>4/10) Prednisone 1 tab PO DAILY #70 tab Ibuprofen 2 - 3 mg PO Q6H PRN #1 tab PRN Reason: Pain Ondansetron HCl [Zofran] 8 mg PO TID PRN #30 tab PRN Reason: nausea and vomiting Primary Care Physician: Alfonso Velásquez MD [Primary Care Provider] - Within 2 Weeks Please Follow Up With: Aubrey Pineda MD When: 2-3 weeks Disposition: Home Minutes spent on discharge:: 32 Patient Condition:: Good Medical Necessity - Tobacco Use Smoking Status: Current every day smoker Meaningful Use Info Meaningful Use Diagnoses (Choose all that apply): None applicable Code Visit Inpatient E&M: 74401 Disch Hosp
[2017-09-21 09:20] VITALS: BP 103/62; PULSE 65; RESP 14; TEMP 36.6; O2SAT 98
[2017-09-21] MEDS: 0.9% NaCl Peripheral Flush Adult/Peds IV (09:24)
[2017-09-21] MEDS: MethylPREDNISolone 125 MG/2 ML Vial 60 MG IV (09:24)
[2017-09-21] MEDS: Pantoprazole Sodium 40 MG Tablet PO (09:24)
[2017-09-21 12:05] VITALS: BP 117/72; PULSE 60; RESP 18; TEMP 36.8; O2SAT 96
[2017-09-23 13:23] LABS: Pathologist Review Reviewed
== END 2017-09-21 12:32 | disposition home or self-care (01) | DRG 387 ==
LOC: ED 17:38 → MS2 20:28
PROVIDERS: Student in an Organized Health Care Education/Training Program; Admitting Provider Hospitalist; Emergency Provider Emergency Medicine; Family Provider Family Medicine; PCP Family Medicine
DX: K50.00 Crohn's disease of small intestine without complications (principal); E86.0 Dehydration; Z72.0 Tobacco use
CPT/HCPCS: 36415; 74177; 80048; 80053; 81001; 83690; 84075; 85025; 87506; 97802; 99282; 99406; J7030; Q9967; A4216; J2405

== ENCOUNTER → 2017-10-16 07:55 | Outpatient (CLI) | payer OTHER, SELFPAY | PROVIDERS: Family Provider Family Medicine; PCP Family Medicine; Visit Provider Internal Medicine Gastroenterology | DX: K50.00 Crohn's disease of small intestine without complications (principal) | CPT/HCPCS: 74250 ==

== ENCOUNTER → 2017-11-06 09:59 | Outpatient (CLI) | payer OTHER, SELFPAY ==
[2017-11-06 12:34] LABS: Vitamin D,25 Hydroxy 11.3 ng/mL (29.95-100.01)
== END ==
PROVIDERS: Family Provider Family Medicine; PCP Family Medicine; Visit Provider Family Medicine
DX: E55.9 Vitamin D deficiency, unspecified (principal)
CPT/HCPCS: 36415; 82306

== ENCOUNTER → 2017-11-12 08:56 | Outpatient (CLI) | payer OTHER, SELFPAY ==
[2017-11-12 09:12] VITALS: BP 120/75; PULSE 93; RESP 18; TEMP 36; O2SAT 97; BMI 25.7
[2017-11-12 10:24] VITALS: BP 112/65; PULSE 75; RESP 18; TEMP 36.3; O2SAT 98
[2017-11-12 10:59] VITALS: PULSE 80; RESP 18; TEMP 36.1; O2SAT 98
[2017-11-12 11:14] VITALS: BP 114/71; PULSE 79; RESP 18; TEMP 36.1; O2SAT 99
== END ==
PROVIDERS: Family Provider Family Medicine; PCP Family Medicine; Referring Provider Internal Medicine Gastroenterology; Visit Provider Internal Medicine Gastroenterology
DX: K50.90 Crohn's disease, unspecified, without complications (principal)
CPT/HCPCS: 96365; J7050; A4216; J3358

== ENCOUNTER → 2018-01-15 09:21 | Outpatient (CLI) | payer OTHER, SELFPAY ==
[2018-01-15 10:52] LABS: Vitamin D,25 Hydroxy 29.2 ng/mL (29.95-100.01)
== END ==
PROVIDERS: Family Provider Family Medicine; PCP Family Medicine; Visit Provider Family Medicine
DX: E55.9 Vitamin D deficiency, unspecified (principal)
CPT/HCPCS: 36415; 82306

== ENCOUNTER 2018-10-13 15:43 | Emergency (ER) | payer OTHER, SELFPAY ==
[2018-10-13 15:44] VITALS: BP 119/84; PULSE 103; RESP 18; TEMP 36.3; O2SAT 96; BMI 24.2
--- NOTE | 2018-10-13 16:03 | CT_ITS ---
We are attempting to reach an attending provider to discuss findings. An addendum with communication details will be sent when the communication is complete. STUDY: CT ABDOMEN AND PELVIS WITH CONTRAST REASON FOR EXAM: Male, 33 years old. Right lower quadrant pain RADIATION DOSAGE (If Supplied By Facility): DLP = ( 995.89 ) mGycm TECHNIQUE: Transaxial images were obtained from the dome of the diaphragm to the symphysis pubis with oral contrast. 100 ml of Isovue 370 contrast was administered. Sagittal and coronal images were reconstructed. Individualized dose optimization techniques were used for this CT. COMPARISON: CT abdomen and pelvis September 19, 2017 FINDINGS: The visualized lung bases are clear. The visualized portions of the heart and pericardium are within normal limits. There are no calcified gallstones present. The liver is within normal limits. There are no suspicious hepatic lesions. The spleen is normal in size. The pancreas is within normal limits. The adrenal glands are within normal limits. There are no obstructing renal stones. There is no hydronephrosis. There are no focal renal lesions. Normal visualized stomach. There is prominent thickening with adjacent inflammation of the distal/terminal ileum. There is regional increased fat attenuation, and several foci of gas, which may be extraluminal although exact location difficult to determine. The appendix wall is thickened with increased diameter of the appendix. The aorta is normal in caliber. There is no abdominal or pelvic lymphadenopathy. There are no destructive osseous lesions. CT/Abdomen/Pelvis WITH Contrast IMPRESSION: Prominent distal/terminal inflammatory changes as described above, and regional fluid/fat stranding consistent in appearance with inflammation from known Crohn's disease. Appendix wall thickening with increased diameter, which may be represent secondary or simultaneous appendicitis. Several associated foci of gas may be extraluminal, although exact location is difficult to determine. Electronically Signed: José Miguel Martinez, at 18:09 EDT Tel , Service support ,
--- NOTE | 2018-10-13 16:04 | ED.VIS.GEN ---
History of Present Illness Chief Complaint: Abd Pain Detail of Chief Complaint: Right lower quadrant pain Informant: Patient, Family Onset: Weeks - 2 weeks Context: Gradual Onset Timing: Waxes and wanes Current Severity: Moderate Maximum Severity: Moderate Narrative: Patient presents with a 2-week history of right lower quadrant abdominal pain. He has had diarrhea but no blood with the stool. No fever. No vomiting. He does have a history of Crohn's disease, but states this is not the typical location for his flares. He is supposed to be on preventative medication for his Crohn's flares, but does not take it. - Past Medical History (1) Crohn's colitis Status: Chronic Past Medical History - Allergies and Home Meds Allergies/Adverse Reactions: Allergies Tetanus Vaccines and Toxoid Allergy (Verified 10/13/18 15:46) Swelling Primary Care Physician: Alfonso Velásquez MD [Primary Care Provider] - Prior records reviewed: Yes Past Medical History: - - Reviewed Surgical History: no surgical history Lives: Spouse/ Significant Other Smoking Status: Current every day smoker - Family History Maternal Family History: Reports: Dementia Paternal Family History: Reports: Heart Disease Review of Systems General: Reports: Chills. Denies: Fever Eyes: Denies: Visual changes - bilaterally ENT: Denies: Bilateral ear pain Cardiovascular: Denies: Chest pain Respiratory: Denies: Dyspnea, Cough Gastrointestinal: Reports: Abdominal pain, Diarrhea. Denies: Vomiting Musculoskeletal: Denies: Back pain Skin: Denies: Rash Neurological: Denies: Headache Endocrine: Denies: Polyuria, Polydipsia Hematologic: Denies: Easy bruising Allergy: Denies: Uticaria Physical Exam Vital Signs/Narrative: Vital Signs Temp Pulse Resp BP Pulse Ox 10/13/18 15:44 97.4 F L 103 H 18 119/84 H 96 Inital Vital Signs reviewed: Yes General: Well nourished, Well developed Head: Normocephalic Eyes: EOMI ENT: Moist mucous membranes Neck: Supple, Nontender Cardiovascular: Regular rate, Regular rhythm Respiratory: No distress, CTA bilaterally Abdomen: Soft, Tender - Right lower quadrant tenderness to palpation with guarding., Guarding, Hypoactive bowel sounds. Negative for: Rebound tenderness Back: Nontender Extremities: Nontender Skin: Normal color Neurological: Alert, Oriented x3 Psychological: Normal affect Diagnostic/Tx/Re-eval Impressions Abdomen/Pelvis CT 10/13/18 16:03 IMPRESSION: Prominent distal/terminal inflammatory changes as described above, and regional fluid/fat stranding consistent in appearance with inflammation from known Crohn's disease. Appendix wall thickening with increased diameter, which may be represent secondary or simultaneous appendicitis. Several associated foci of gas may be extraluminal, although exact location is difficult to determine. Electronically Signed: José Miguel Martinez, at 18:09 EDT Tel , Service support , ADDENDUM: 10/13/18 1828 IMPRESSION: Prominent distal/terminal inflammatory changes as described above, and regional fluid/fat stranding consistent in appearance with inflammation from known Crohn's disease. Appendix wall thickening with increased diameter, which may be represent secondary or simultaneous appendicitis. Several associated foci of gas may be extraluminal, although exact location is difficult to determine. N.B. : The above information has been verbally conveyed by José Miguel Martinez to Soheila Bruno MD, on 10/13/2018 18:21:59 (ET). Electronically Signed: José Miguel Martinez, at 18:09 EDT Tel , Service support , 10/13/18 16:03 Abdomen/Pelvis WITH Contrast [CT] Stat Laboratory Results 10/13/18 10/13/18 10/13/18 16:00 16:00 16:11 WBC 13.6 H RBC 5.11 Hgb 14.1 Hct 43.2 MCV 84.5 MCH 27.6 MCHC 32.6 RDW Std Deviation 39.4 RDW Coeff of K[place] 12.7 Plt Count 472 H MPV 9.0 Immature Gran % (Auto) 0.600 Neut % (Auto) 73.6 H Lymph % (Auto) 14.4 L [place] % (Auto) 6.8 Eos % (Auto) 4.3 Baso % (Auto) 0.3 Absolute Neuts (auto) 10.0 H Absolute Lymphs (auto) 1.96 Nucleated RBC % 0 Sodium 140 Potassium 3.6 Chloride 106 Carbon Dioxide 30.0 Anion Gap 4 L BUN 10 Creatinine 1.06 Estim Creat Clear Calc 109.93 Est GFR (MDRD) Af Amer 102 Est GFR (MDRD) Non-Af 84 BUN/Creatinine Ratio 9.4 L Glucose 98 Calcium 8.8 Urine Color Yellow Urine Clarity Clear Urine pH 6.5 Ur Specific [place] 1.020 Urine Protein 30 H Urine Glucose (UA) Normal Urine Ketones 15 H Urine Occult Blood Negative Urine Nitrite Negative Urine Bilirubin Negative Urine Urobilinogen 4 H Ur Leukocyte Esterase 100 H Urine RBC 0-5 SEEN Urine WBC 0-5 SEEN Ur Squamous Epith Cells 0 SEEN Urine Bacteria 0 SEEN Hyaline Casts 0-5 SEEN Urine Mucus 4+ - Medical Decision Making Patient declined morphine for pain. Lab work and CT images were reviewed with the patient. He had been seen by Dr. Gonzalez in the past so I spoke with Dr. Guzman. She reviewed his CT images. She believes that this is all secondary to his Crohn's, however she does not treat Crohn's. She feels the patient should be watched at a facility with GI availability and surgery will need to keep an eye on his appendix as well. This was discussed with patient and at bedside. They have agreed to transfer and he has been accepted at [facility]. Patient was given a dose of Toradol and Solu-Medrol here. ED Disposition - Plan for ED Patient: Disposition: [facility] Diagnosis: Crohns disease, INFLAMMATION of APPENDIX Referrals: lAfonso Velásquez MD [Primary Care Provider] -
[2018-10-13] MEDS: 0.9% Normal Saline 1,000 ML 150 ML IV (16:09)
[2018-10-13] MEDS: Ondansetron 4 MG/2 ML Vial IV (16:16)
[2018-10-13 16:18] LABS: Absolute Lymphocyte Count 1.96 X10^3/uL (0.83-4.51); Basophil# 0.04 X10^3/uL; Basophil% 0.3 % (0-1); Eosinophil# 0.58 X10^3/uL; Eosinophils% 4.3 % (0-5); Hematocrit 43.2 % (40-54); Hemoglobin 14.1 g/dL (13.0-16.5); Lymphocyte # 1.96 X10^3/ul (4.0); Lymphocyte % 14.4 % (19-41); Mean Corp Hgb Conc 32.6 g/dL (32-36); Mean Corpuscular Hgb 27.6 pg (27.0-32.0); Mean Corpuscular Volume 84.5 fL (80-94); Monocyte# 0.92 X10^3/uL; Monocyte% 6.8 % (0-10); NRBC Flagged by Analyzer 0 % (0-5); Neutrophil # 10.03 X10^3/uL (2.7-7.7); Neutrophil % 73.6 % (47-70); Platelet Count 472 K/mm3 (150-450); RBC Distribution Width CV 12.7 % (11.6-14.6); RBC Distribution Width SD 39.4 fl (35.1-43.9); Red Blood Count 5.11 M/mm3 (4.6-6.2); White Blood Count 13.6 K/mm3 (4.4-11.0)
[2018-10-13 16:21] LABS: Bacteria 0 SEEN /hpf (None Seen); Color, Urine Yellow (Yellow); Glucose, Dipstick Normal (Normal); Ketone-Dipstick 15 mg/dl (Negative); Leukocyte Esterase-Dipstick 100 /ul (Negative); Nitrite-Dipstick Negative (Negative); Occult Blood-Urine Negative /ul (Negative); Protein-Dipstick 30 mg/dl (Negative); Squamous Epithelial Cells - UA 0 SEEN /hpf (0-5); Urine Bilirubin Dipstick Negative (Negative); Urine Clarity Clear (Clear); Urine Urobilinogen 4 mg/dl (Normal); Urine pH 6.5 (5.0 - 8.0)
[2018-10-13 16:29] LABS: Mucous, Urine 4+ /hpf (<or=2+)
[2018-10-13 16:30] LABS: Hyaline Cast 0-5 SEEN /lpf (0-5)
[2018-10-13 16:31] LABS: Red Blood Cells-Urine 0-5 SEEN /hpf (0-5); White Blood Cells 0-5 SEEN /hpf (0-5)
[2018-10-13 16:31] LABS: Anion Gap 4 (5-15); BUN 10 mg/dL (7-18); BUN/Creat Ratio 9.4 RATIO (10-20); Calcium,Total 8.8 mg/dL (8.5-10.1); Chloride 106 mmol/L (98-107); Creatinine, Serum 1.06 mg/dL (0.70-1.30); EST Glomerular Filtration Rate 84 mL/min (>60); Est Glom Filt Rate - Afr Amer 102 mL/min (>60); Estimated Creatinine Clearance 109.93 ml/min; Glucose 98 mg/dL (74-106); Potassium 3.6 mmol/L (3.5-5.1); Sodium Level 140 mmol/L (136-145)
[2018-10-13 17:58] VITALS: BP 129/78; PULSE 97; RESP 16; O2SAT 98
[2018-10-13] MEDS: MethylPREDNISolone 125 MG/2 ML Vial 60 MG IV (18:38)
[2018-10-13] MEDS: Ketorolac 30 MG/ML Syringe IV (18:38)
[2018-10-13 20:07] VITALS: BP 109/66; PULSE 69; RESP 16; TEMP 37.1; O2SAT 96
[2018-10-13 20:08] VITALS: BP 109/66; PULSE 69; RESP 16; O2SAT 94
== END 2018-10-13 20:25 | disposition short-term general hospital (02) ==
PROVIDERS: Emergency Provider Emergency Medicine; Family Provider Family Medicine; PCP Family Medicine
DX: K50.90 Crohn's disease, unspecified, without complications (principal); F17.200 Nicotine dependence, unspecified, uncomplicated
CPT/HCPCS: 74177; 80048; 81001; 85025; 96361; 96374; 96375; 99284; J7030; Q9967; A4216; J2405

== ENCOUNTER 2019-09-29 14:26 | Emergency (ER) | payer OTHER, SELFPAY ==
[2019-09-29 14:27] VITALS: BP 142/86; PULSE 108; RESP 16; TEMP 36.1; O2SAT 97; BMI 23.7
[2019-09-29 14:28] VITALS: BP 142/86; PULSE 108; RESP 16; TEMP 36.1; O2SAT 97
--- NOTE | 2019-09-29 14:44 | CT_ITS ---
STUDY: CT ABDOMEN AND PELVIS WITH CONTRAST REASON FOR EXAM: Male, 34 years old. Nausea, vomiting, diarrhea, abdomen pain, hx Crohn''s. RADIATION DOSAGE (If Supplied By Facility): CTDIvol = ( 10.60 ) mGy, DLP = ( 614.30 ) mGycm TECHNIQUE: Transaxial images were obtained from the dome of the diaphragm to the symphysis pubis without oral contrast. Oral and amp; IV Gastrografin and amp; 100mL Isovue-300 was administered. Sagittal and coronal images were reconstructed. Individualized dose optimization techniques were used for this CT. COMPARISON: 10/13/2018 FINDINGS: The visualized lung bases are unremarkable. The visualized portions of the heart are within normal limits. Normal liver. Normal gallbladder and extrahepatic biliary system. Normal spleen. Normal pancreas. Normal bilateral adrenal glands. Normal right kidney. Normal left kidney. Normal visualized stomach. There are multiple fluid-filled small bowel loops with air-fluid levels and system with ileus. There is a markedly abnormal small bowel loop in the distal ileum leading into the terminal ileum and cecum where there is some mucosal thickening and pericolonic inflammatory stranding. Findings are consistent with an acute exacerbation of Crohn''s. No perforation or abscess is noted. Aside from the abnormal cecum, the remainder of the colon is unremarkable. There is non-visualization of the appendix. Normal abdominal aorta. Normal inferior vena cava. Normal retroperitoneum. Normal urinary bladder. There is free fluid in the dependent pelvis. Normal abdominal wall. There are mild degenerative changes of the visualized lumbar spine. CT/Abdomen/Pelvis WITH Contrast IMPRESSION: Abnormal loops of distal ileum including a markedly abnormal terminal ileum and cecum. There is diffuse submucosal thickening and pericolonic inflammatory stranding consistent with acute exacerbation of Crohn''s. No perforation or abscess but there are a few nearby borderline enlarged lymph nodes. Small bowel ileus in the jejunum and proximal ileum Colon aside from the cecum is unremarkable Free fluid in the dependent pelvis No suspicious solid organ abnormality Electronically Signed: Brandan Mock MD at 17:41 EDT , Service support ,
--- NOTE | 2019-09-29 14:45 | ED.DCSUM_ITS ---
History of Present Illness Chief Complaint: Abd Pain Informant: Patient - Abdominal Pain/Flank Pain Onset: Month(s) - 1-2 Context: Gradual Onset Timing: Waxes and wanes Quality: Aching Location: Diffuse - focused LLQ and epigastric; no radiation Current Severity: Moderate Maximum Severity: Moderate Worsened by: Nothing Relieved by: Nothing - Nausea/Vomiting/Emesis GI Symptom: Nausea, Vomiting Onset: Today Quality: Nonbilious. Negative for: Blood streaks, Coffee ground, Hematemesis - Diarrhea/Melena/Hematochezia GI Symptom: Diarrhea. Negative for: Melena, Hematochezia Onset: Yesterday Stool Quality: Watery Severity: Moderate Associated Symptoms: Negative for: Dysuria, Frequency, Hematuria, Urgency Narrative: Patient has a history of Crohn's, he does not take any medication for it, nor does he see GI, although he used to see Dr. Pineda, and does not see his doctor for this. He states that since he has been having pain that he feels is possibly associated with it, for 1-2 months now and feels like it is getting w orse in the past day or 2, he presents to the emergency department. He made an appointment with his PCP for 1 week away from today but does not feel like he can wait. No history of any abdominal surgeries or other medical problems. - Past Medical History (1) Crohn's colitis Status: Chronic Past Medical History - Allergies and Home Meds Allergies/Adverse Reactions: Allergies Tetanus Vaccines and Toxoid Allergy (Verified 09/29/19 14:28) Swelling Primary Care Physician: Alfonso Velásquez MD [Primary Care Provider] - Surgical History: no surgical history Smoking Status: Current every day smoker - Family History Maternal Family History: Reports: Dementia Paternal Family History: Reports: Heart Disease Review of Systems General: Denies: Chills, Fever, Sweats Eyes: Denies: Visual changes - bilaterally, Diplopia ENT: Denies: Rhinorrhea, Sore throat Cardiovascular: Denies: Chest pain, Palpitations Respiratory: Denies: Dyspnea, Cough, Dyspnea on exertion Gastrointestinal: Reports: Abdominal pain, Nausea, Vomiting, Diarrhea. Denies: Melena, Hematochezia Genitourinary: Denies: Dysuria, Hematuria, Frequency Musculoskeletal: Denies: Back pain, Swelling, Extremity Pain Skin: Denies: Rash, Wounds Neurological: Denies: Headache, Weakness, Numbness Physical Exam Vital Signs/Narrative: Vital Signs Temp Pulse Resp BP Pulse Ox 09/29/19 14:28 97 F L 108 H 16 142/86 H 97 09/29/19 14:27 97 F L 108 H 16 142/86 H 97 Inital Vital Signs reviewed: Yes General: Well nourished, Well developed, No Acute Distress Head: Normocephalic, Atraumatic Eyes: Perrl, EOMI ENT: Moist mucous membranes, No rhinorrhea Neck: Supple, Nontender Cardiovascular: Regular rate, Regular rhythm, No murmurs Respiratory: No distress, CTA bilaterally, Chest nontender Abdomen: Soft, No masses, Tender - Mild, diffusely. Least tender in the upper quadrants., Hyperactive bowel sounds - With borborygmi, - - Distended and tympanitic. Negative for: Guarding, Rebound tenderness Back: Nontender, Normal Inspection. Negative for: CVA tenderness Extremities: Nontender, No edema. Negative for: Calf Tenderness Skin: Normal color, No rash, No Trauma Neurological: Alert, Oriented x3, Cranial nerves II-XII grossly intact, Normal Strength, Normal Sensation, Normal Gait Psychological: Normal affect, Normal Mood Diagnostic/Tx/Re-eval Impressions Abdomen/Pelvis CT 09/29/19 14:44 IMPRESSION: Abnormal loops of distal ileum including a markedly abnormal terminal ileum and cecum. There is diffuse submucosal thickening and pericolonic inflammatory stranding consistent with acute exacerbation of Crohn''s. No perforation or abscess but there are a few nearby borderline enlarged lymph nodes. Small bowel ileus in the jejunum and proximal ileum Colon aside from the cecum is unremarkable Free fluid in the dependent pelvis No suspicious solid organ abnormality Electronically Signed: Brandan Mock MD at 17:41 EDT , Service support , 09/29/19 14:44 Abdomen/Pelvis WITH Contrast [CT] Stat Laboratory Results 09/29/19 09/29/19 09/29/19 15:02 15:02 15:02 WBC 17.2 H RBC 5.28 Hgb 14.5 Hct 44.6 MCV 84.5 MCH 27.5 MCHC 32.5 RDW Std Deviation 43.1 RDW Coeff of Kuldeep 14.0 Plt Count 508 H MPV 8.8 Immature Gran % (Auto) 0.500 Neut % (Auto) 81.6 H Lymph % (Auto) 9.7 L [place] % (Auto) 6.2 Eos % (Auto) 1.8 Baso % (Auto) 0.2 Absolute Neuts (auto) 14.0 H Absolute Lymphs (auto) 1.66 Nucleated RBC % 0 Sodium 134 L Potassium 3.9 Chloride 103 Carbon Dioxide 27.0 Anion Gap 4 L BUN 9 Creatinine 0.71 Estim Creat Clear Calc 162.55 Est GFR (MDRD) Af Amer 160 Est GFR (MDRD) Non-Af 132 BUN/Creatinine Ratio 12.6 Glucose 107 H Calcium 9.0 Total Bilirubin 0.40 AST 7 L ALT 16 Alkaline Phosphatase 145 H Total Protein 8.4 H Albumin 3.3 Globulin 5.1 H Albumin/Globulin Ratio 0.6 L Lipase 66 L Urine Color Yellow Urine Clarity Sl. Cloudy Urine pH 5.0 Ur Specific [place] 1.025 Urine Protein 30 H Urine Glucose (UA) Normal Urine Ketones 5 H Urine Occult Blood Negative Urine Nitrite Negative Urine Bilirubin 1 H Urine Urobilinogen 1 H Ur Leukocyte Esterase 25 H Urine RBC 0 SEEN Urine WBC 0-5 SEEN Ur Squamous Epith Cells 0-5 SEEN Urine Bacteria 1+ Urine Mucus 1+ - Medical Decision Making Work-up as above consistent with a Crohn's exacerbation. He does have a leukocytosis, there is no sign of any definite infection. He did not provide diarrhea specimen to send for C. difficile testing while he was in the emergency department. I think it would be reasonable to start him on Flagyl, not necessarily to cover C. difficile, but there is been some evidence that it could help a Crohn's exacerbation, even if there is no active infection. Also, we will put him on a steroid taper. He will follow-up with his PCP as scheduled, he was also advised to try to get into see his GI doctor that he is established with as well. Discussed reasons to return, he does not appear to be dehydrated or malnourished at this time or need of admission, and is tolerating oral fluids without difficulty here. ED Disposition - Plan for ED Patient: Disposition: Home or Assisted Living Diagnosis: Exacerbation of Crohn's disease Instructions: ED Crohn's Disease Prescriptions: Metronidazole 500 mg PO BID #20 tab Prescription Printed Prednisone 10 mg PO UD #33 tab Prescription Printed Referrals: Alfonso Velásquez MD [Primary Care Provider] - Keep Dmitri appointment
[2019-09-29] MEDS: Ondansetron 4 MG/2 ML Vial IV (14:58)
[2019-09-29] MEDS: Ketorolac 30 MG/ML Syringe IV (14:58)
[2019-09-29] MEDS: 0.9% Normal Saline 1,000 ML 1000 ML IV (14:58)
[2019-09-29 15:13] LABS: Red Blood Cells-Urine 0 SEEN /hpf (0-5)
[2019-09-29 15:22] LABS: Absolute Lymphocyte Count 1.66 X10^3/uL (0.83-4.51); Basophil# 0.04 X10^3/uL; Basophil% 0.2 % (0-1); Eosinophil# 0.31 X10^3/uL; Eosinophils% 1.8 % (0-5); Hematocrit 44.6 % (40-54); Hemoglobin 14.5 g/dL (13.0-16.5); Lymphocyte # 1.66 X10^3/ul (4.0); Lymphocyte % 9.7 % (19-41); Mean Corp Hgb Conc 32.5 g/dL (32-36); Mean Corpuscular Hgb 27.5 pg (27.0-32.0); Mean Corpuscular Volume 84.5 fL (80-94); Mean Platelet Vol. 8.8 fl (6.2-12.0); Monocyte# 1.06 X10^3/uL; Monocyte% 6.2 % (0-10); NRBC Flagged by Analyzer 0 % (0-5); Neutrophil % 81.6 % (47-70); Platelet Count 508 K/mm3 (150-450); RBC Distribution Width SD 43.1 fl (35.1-43.9); Red Blood Count 5.28 M/mm3 (4.6-6.2); White Blood Count 17.2 K/mm3 (4.4-11.0)
[2019-09-29 15:26] LABS: Color, Urine Yellow (Yellow); Glucose, Dipstick Normal (Normal); Ketone-Dipstick 5 mg/dl (Negative); Leukocyte Esterase-Dipstick 25 /ul (Negative); Nitrite-Dipstick Negative (Negative); Occult Blood-Urine Negative /ul (Negative); Protein-Dipstick 30 mg/dl (Negative); Specific Gravity, Urine 1.025 (1.002-1.030); Urine Clarity Sl. Cloudy (Clear); Urine Urobilinogen 1 mg/dl (Normal)
[2019-09-29 15:29] LABS: Urine Bilirubin Dipstick 1 mg/dL (Negative)
[2019-09-29 15:34] LABS: Bacteria 1+ /hpf (None Seen); Mucous, Urine 1+ /hpf (<or=2+); Squamous Epithelial Cells - UA 0-5 SEEN /hpf (0-5); White Blood Cells 0-5 SEEN /hpf (0-5)
[2019-09-29 15:49] LABS: ALB/GLOB Ratio 0.6 RATIO (0.9-2.4); AST(SGOT) 7 U/L (15-37); Alanine Aminotransfer ALT/SGPT 16 U/L (16-61); Albumin, Serum 3.3 g/dL (3.2-5.0); Alkaline Phosphatase 145 U/L (45-117); Anion Gap 4 (5-15); BUN 9 mg/dL (7-18); BUN/Creat Ratio 12.6 RATIO (10-20); Chloride 103 mmol/L (98-107); Creatinine, Serum 0.71 mg/dL (0.70-1.30); EST Glomerular Filtration Rate 132 mL/min (>60); Est Glom Filt Rate - Afr Amer 160 mL/min (>60); Estimated Creatinine Clearance 162.55 ml/min; Globulin 5.1 g/dL (2.2-4.2); Glucose 107 mg/dL (74-106); Lipase 66 U/L (73-393); Potassium 3.9 mmol/L (3.5-5.1); Protein, Total 8.4 g/dL (6.4-8.2); Sodium Level 134 mmol/L (136-145)
[2019-09-29 16:04] VITALS: BP 114/86; PULSE 91; RESP 15; TEMP 36.8; O2SAT 97
[2019-09-29 18:38] VITALS: BP 136/98; PULSE 79; RESP 15; O2SAT 98
[2019-09-29] MEDS: metroNIDAZOLE 500 MG Tablet PO (18:39)
== END 2019-09-29 18:41 | disposition home or self-care (01) ==
PROVIDERS: Emergency Provider Emergency Medicine; PCP Family Medicine
DX: K50.90 Crohn's disease, unspecified, without complications (principal); F17.200 Nicotine dependence, unspecified, uncomplicated
CPT/HCPCS: 74177; 80053; 81001; 83690; 85025; 96361; 96374; 96375; 99282; J7030; Q9967; J2405

== ENCOUNTER → 2019-10-06 09:32 | Outpatient (CLI) | payer OTHER, SELFPAY ==
[2019-09-29 14:27] VITALS: BMI 23.7
[2019-10-06 12:43] LABS: Vitamin D,25 Hydroxy 24.2 ng/mL
== END ==
PROVIDERS: PCP Family Medicine; Referring Provider Family Medicine; Visit Provider Family Medicine
DX: E55.9 Vitamin D deficiency, unspecified (principal)
CPT/HCPCS: 36415; 82306

== ENCOUNTER → 2020-02-25 12:50 | Outpatient (CLI) | payer OTHER, SELFPAY ==
--- NOTE | 2020-02-25 12:54 | CT_ITS ---
STUDY: CT ABDOMEN AND PELVIS WITH CONTRAST REASON FOR EXAM: Male, 34 years old. Crohn''s disease, Enterography, incomplete colonoscopy last week. RADIATION DOSAGE (If Supplied By Facility): CTDIvol = ( 17.56 ) mGy, DLP = ( 1650.68 ) mGycm TECHNIQUE: Transaxial images were obtained from the dome of the diaphragm to the symphysis pubis with oral contrast. Breeza neutral and amp; 100mL Isovue 300 was administered. Sagittal and coronal images were reconstructed. Individualized dose optimization techniques were used for this CT. COMPARISON: Comparison is made with prior examination in 09/29/2019. FINDINGS: The visualized lung bases are unremarkable. The visualized portions of the heart are within normal limits. Normal liver. Normal gallbladder and extrahepatic biliary system. Normal spleen. Normal pancreas. Normal bilateral adrenal glands. Normal right kidney. Normal left kidney. Normal visualized stomach. There is circumferential wall thickening and luminal narrowing of the distal and terminal ileum. Increased markings are seen in the surrounding peritoneal fat suggestive of an active inflammatory process. There is minimal dilatation of the proximal small bowel. The inflammatory process as improved as compared to prior study. There is less small bowel distention at this time. Normal colon. The appendix is visualized and appears normal. Normal abdominal aorta. Normal inferior vena cava. Normal retroperitoneum. Normal urinary bladder. There is a small umbilical hernia containing fat. Normal osseous structures. CT/Abdomen/Pelvis WITH Contrast IMPRESSION: Circumferential wall thickening and luminal narrowing of the distal and terminal ileum with increased markings in the surrounding peritoneal fat suggestive of an active inflammatory process. Minimal dilatation of the proximal small bowel loops. This as improved as compared to prior examination. Electronically Signed: Cruzito Lopez, at 14:19 EST , Service support ,
== END ==
PROVIDERS: PCP Family Medicine
DX: K50.80 Crohn's disease of both small and large intestine without complications (principal); K63.5 Polyp of colon; K63.89 Other specified diseases of intestine
CPT/HCPCS: 74177; Q9967; A4216

== ENCOUNTER → 2020-12-07 10:46 | Outpatient (CLI) | payer BC, SELFPAY ==
[2020-12-07 12:00] LABS: Absolute Lymphocyte Count 1.74 X10^3/uL (0.83-4.51); Absolute Neutrophil Count 6.9 X10^3/uL (2.0-7.7); Basophil# 0.04 X10^3/uL; Basophil% 0.4 % (0-1); Eosinophil# 0.39 X10^3/uL; Eosinophils% 3.9 % (0-5); Lymphocyte # 1.74 X10^3/ul (0.83-4.51); Lymphocyte % 17.5 % (19-41); Mean Corp Hgb Conc 32.5 g/dL (32-36); Mean Corpuscular Hgb 27.2 pg (27.0-32.0); Mean Corpuscular Volume 83.7 fL (80-94); Mean Platelet Vol. 8.9 fl (6.2-12.0); Monocyte# 0.87 X10^3/uL; Monocyte% 8.7 % (0-10); NRBC Flagged by Analyzer 0 % (0-5); Neutrophil % 69.2 % (47-70); Platelet Count 488 K/mm3 (150-450); RBC Distribution Width CV 13.3 % (11.6-14.6); RBC Distribution Width SD 41.1 fl (35.1-43.9); Red Blood Count 4.78 M/mm3 (4.6-6.2)
[2020-12-07 13:48] LABS: ALB/GLOB Ratio 0.7 RATIO (0.9-2.4); AST(SGOT) 12 U/L (15-37); Alanine Aminotransfer ALT/SGPT 15 U/L (16-61); Albumin, Serum 3.2 g/dL (3.2-5.0); Alkaline Phosphatase 127 U/L (45-117); Anion Gap 7 (5-15); BUN 9 mg/dL (7-18); BUN/Creat Ratio 11.7 RATIO (10-20); Calcium,Total 9.1 mg/dL (8.5-10.1); Chloride 103 mmol/L (98-107); Creatinine, Serum 0.77 mg/dL (0.70-1.30); EST Glomerular Filtration Rate 121 mL/min (>60); Est Glom Filt Rate - Afr Amer 146 mL/min (>60); Globulin 4.3 g/dL (2.2-4.2); Glucose 77 mg/dL (74-106); Protein, Total 7.5 g/dL (6.4-8.2); Sodium Level 140 mmol/L (136-145)
[2020-12-07 15:49] LABS: Vitamin D,25 Hydroxy 31.9 ng/mL
== END ==
PROVIDERS: PCP Family Medicine; Referring Provider Family Medicine; Visit Provider Family Medicine
DX: F17.200 Nicotine dependence, unspecified, uncomplicated (principal); E55.9 Vitamin D deficiency, unspecified
CPT/HCPCS: 36415; 80053; 82306; 85025

== ENCOUNTER 2021-01-31 12:12 | Emergency (ER) | payer BC, SELFPAY ==
[2021-01-31 12:13] VITALS: BP 123/80; PULSE 81; RESP 18; TEMP 36.6; O2SAT 96; BMI 22.4
--- NOTE | 2021-01-31 12:31 | CT_ITS ---
STUDY: CT ABDOMEN AND PELVIS WITH CONTRAST REASON FOR EXAM: Male, 35 years old. History Crohn''s, distention, tympana, nausea no fl -- IV PO Contrast RADIATION DOSAGE (If Supplied By Facility): CTDIvol = ( 10.59 ) mGy, DLP = ( 604.58 ) mGycm TECHNIQUE: Transaxial images were obtained from the dome of the diaphragm to the symphysis pubis with oral contrast. Oral and amp; IV Gastrografin and amp; 100mL Isovue-370 was administered. Sagittal and coronal images were reconstructed. Individualized dose optimization techniques were used for this CT. COMPARISON: Comparison is made with prior study dated 02/25/2020. FINDINGS: The visualized lung bases are unremarkable. The visualized portions of the heart are within normal limits. Normal liver. Normal gallbladder and extrahepatic biliary system. Normal spleen. Normal pancreas. Normal bilateral adrenal glands. Normal right kidney. Normal left kidney. Normal visualized stomach. Diffuse circumferential wall thickening of the distal ileal loops with the narrowing of the lumen and dilatation of the proximal ileal loops. Increased markings in the surrounding peritoneal fat suggestive of a recurrent Crohn''s disease. Small amount of fluid is seen in the pelvis. Scattered sigmoid diverticula. There is non-visualization of the appendix. Normal abdominal aorta. Normal inferior vena cava. There is borderline retroperitoneal lymphadenopathy with enlarged nodes no greater than 10mm in the short axis diameter. Normal urinary bladder. There is a small umbilical hernia containing fat. There are mild degenerative changes of the visualized lumbar spine. CT/Abdomen/Pelvis WITH Contrast IMPRESSION: Diffuse circumferential wall thickening and narrowing of the distal ileal loops with increased markings in the surrounding peritoneal fat suggestive of active Crohn''s disease. Small amount of free fluid isn''t seen in the pelvis. Electronically Signed: Cruzito Lopez MD at 14:49 EST , Service support ,
[2021-01-31] MEDS: 0.9% Normal Saline 1,000 ML 1000 ML IV (12:48)
[2021-01-31] MEDS: Ondansetron 4 MG/2 ML Vial IV (12:50)
--- NOTE | 2021-01-31 13:00 | EDS_ITS ---
HPI HPI - GI History of Present Illness Chief Complaint: Abd Pain Detail of Chief Complaint: Upper abdominal pain and right lower quadrant abdominal pain Informant: patient and spouse/S.O. Abdominal Pain/Flank Pain Onset: Today Context: Sudden Onset Timing: Continuous and Waxes and wanes Quality: - (Colicky crampy pain) Location: Epigastric and RLQ Current Severity: Mild Maximum Severity: Moderate Worsened by: Nothing Relieved by: Nothing Nausea/Vomiting/Emesis GI Symptom: Positive for Nausea; Negative for Vomiting Onset: Hours Diarrhea/Melena/Hematochezia GI Symptom: Positive for - (Normally has 4 bowel movements a day); Negative for Diarrhea, Melena and Hematochezia Associated Symptoms Associated Symptoms: Negative for Dysuria, Frequency and Hematuria Narrative Narrative: Patient is a 35-year-old male with history of Crohn's disease. He takes prednisone intermittently. He has not seen his GI specialist in greater than a year. He does endorse nausea without vomiting diarrhea. Denies blood or mucus in the stool. He denies bruising easily. He does feel bloated/distended. He has had prior problems with his Crohn's. He denies prior surgery. He has not had a colonoscopy in greater than a year. Prior similar symptoms: No Recent Illness/Hospitalization: No [facility] Medical History Crohns disease Home Medications cholecalciferol (vitamin D3) [Vitamin D3] 50 mcg PO DAILY 01/31/21 [History Last Taken Unknown] prednisone 40 mg PO UD 01/31/21 [History Last Taken Unknown] Allergy/AdvReac Type Severity Reaction Status Date / Time Tetanus Vaccines and Toxoid Allergy Swelling Verified 01/31/21 12:14 Social History (Updated 01/31/21 @ 13:[address] Joshua Bernardo MD) household members: significant other Smoking Status: Former smoker substance use type: does not use ROS ROS ED Constitutional Constitutional ED: Denies chills, fever(s), subjective, sweats or weight loss ENT ENT ED: Denies ear pain, rhinorrhea or sore throat Cardiovascular Cardiovascular: Denies chest pain, palpitations or racing heartbeat Respiratory/Chest Respiratory/Chest: Denies cough, dyspnea or dyspnea on exertion Gastrointestinal Gastrointestinal: Reports abdominal pain and nausea; Denies constipation, diarrhea, melena or vomiting Genitourinary Genitourinary ED: Denies dysuria, hematuria or urinary frequency Musculoskeletal Musculoskeletal: Denies arthralgias, back pain, myalgias or neck pain Integumentary Denies rash Neurologic Neurologic: Denies headache(s), paresthesias or weakness Endocrine Endocrinology: Denies polydipsia, polyphagia or polyuria Hematologic/Lymphatic Hematologic/Lymphatic: Denies easy bleeding or easy bruising EXAM Physical Exam Const Vital Signs: 01/31/21 12:13 Temperature 97.8 F Temperature Source Temporal Pulse Rate 81 Respiratory Rate 18 Blood Pressure 123/80 H Blood Pressure Mean 94 Pulse Ox 96 Oxygen Delivery Method Room Air Positive well nourished and well developed General Appearance ED: well developed; Negative for NAD or pallor HEENT Reports dry mucous membranes normocephalic and atraumatic Mouth ED: Yes dry mucous membranes Mouth: dry mucous membranes Eyes PERRL and EOMs intact bilaterally General Eye ED: Negative for pale conjunctiva or scleral icterus Neck no lymphadenopathy, supple and no JVD Resp normal respiratory effort and clear to auscultation bilaterally Cardio regular rate, regular rhythm, S1 normal heart sound, S2 normal heart sound and no murmurs GI no masses Inspection: abdominal distention Auscultation: hypoactive bowel sounds Palpation: soft and tender RLQ; Negative for guarding, rigid, hepatomegaly, splenomegaly, mass, pulsatile mass or rebound tenderness present Back/Spine no CVA tenderness Thoracic Spine / Upper Back: Negative for thoracic spinal tenderness Lumbar Spine / Lower Back: Negative for lumbar spinal tenderness Extremity full ROM General Extremety ED: Negative for edema or tenderness General Extremity: Negative for edema Neuro CN's II-XII intact bilaterally and moves all extremities Sensorium / Orientation: alert, oriented to person, oriented to place and oriented to time Psych Mood & Affect: depressed Skin no wounds General Skin Exam: Negative for jaundice or pallor Lesions: no lesions Rashes: no rashes MDM MDM MDM Narrative Medical decision making narrative: With history of Crohn's poor compliance abdominal distention nausea no bowel movement today need to evaluate for partial small bowel obstruction versus Crohn's flare. Preoperative blood work and CT of the abdomen pelvis was obtained. Lab Data Attestation: I reviewed the patient's lab results. Labs: Laboratory Results - last 24 hr 01/31/21 01/31/21 12:52 12:52 WBC 13.7 H RBC 4.94 Hgb 13.3 Hct 40.7 MCV 82.4 MCH 26.9 L MCHC 32.7 RDW Std Deviation 38.7 RDW Coeff of Kuldeep 12.9 Plt Count 417 MPV 8.6 Immature Gran % (Auto) 0.400 Neut % (Auto) 81.4 H Lymph % (Auto) 9.9 L [place] % (Auto) 5.5 Eos % (Auto) 2.4 Baso % (Auto) 0.4 Absolute Neuts (auto) 11.2 H Absolute Lymphs (auto) 1.36 Nucleated RBC % 0 Sodium 138 Potassium 4.0 Chloride 102 Carbon Dioxide 29.0 Anion Gap 7 BUN 9 Creatinine 0.68 L Estim Creat Clear Calc 166.99 Est GFR (MDRD) Af Amer 169 Est GFR (MDRD) Non-Af 140 BUN/Creatinine Ratio 13.3 Glucose 91 Calcium 9.0 Radiography Diagnostic Testing: Clinical Impression(s) from Imaging Studies Abdomen/Pelvis CT 01/31/21 12:31 IMPRESSION: Diffuse circumferential wall thickening and narrowing of the distal ileal loops with increased markings in the surrounding peritoneal fat suggestive of active Crohn''s disease. Small amount of free fluid isn''t seen in the pelvis. Electronically Signed: Cruzito Lopez MD at 14:49 EST , Service support , Discharge Plan Triage Chief Complaint: Abd Pain ED Provider: Joshua Bernardo Dx/Rx/DC Orders Clinical Impression: Exacerbation of Crohn's disease of small intestine without complication Instructions: ED Crohn's Disease Prescriptions: No Action cholecalciferol (vitamin D3) [Vitamin D3] 50 mcg (2,000 unit) Capsule 50 mcg PO DAILY RF: 0 prednisone 10 MG tablet 40 mg PO UD RF: 0 Primary Care Provider: Alfonso Velásquez Referrals: Alfonso Velásquez MD [Primary Care Provider] - Doctor,Your [STAFF PHYSICIAN] - 5-7 Days Activity Restrictions/Additional Instructions: Take prednisone daily. Contact Dr. Gann your fruit coordinator for follow-up this upcoming week. Disposition Disposition: Home, Self Care
[2021-01-31] MEDS: Ketorolac 15 MG/ML Vial IV (13:02)
[2021-01-31 13:04] LABS: Absolute Lymphocyte Count 1.36 X10^3/uL (0.83-4.51); Absolute Neutrophil Count 11.2 X10^3/uL (2.0-7.7); Basophil# 0.05 X10^3/uL; Basophil% 0.4 % (0-1); Eosinophil# 0.33 X10^3/uL; Eosinophils% 2.4 % (0-5); Hematocrit 40.7 % (40-54); Hemoglobin 13.3 g/dL (13.0-16.5); Lymphocyte # 1.36 X10^3/ul (0.83-4.51); Lymphocyte % 9.9 % (19-41); Mean Corp Hgb Conc 32.7 g/dL (32-36); Mean Corpuscular Hgb 26.9 pg (27.0-32.0); Mean Corpuscular Volume 82.4 fL (80-94); Mean Platelet Vol. 8.6 fl (6.2-12.0); Monocyte# 0.75 X10^3/uL; Monocyte% 5.5 % (0-10); NRBC Flagged by Analyzer 0 % (0-5); Neutrophil # 11.19 X10^3/uL (2.7-7.7); Neutrophil % 81.4 % (47-70); Platelet Count 417 K/mm3 (150-450); RBC Distribution Width CV 12.9 % (11.6-14.6); RBC Distribution Width SD 38.7 fl (35.1-43.9); Red Blood Count 4.94 M/mm3 (4.6-6.2); White Blood Count 13.7 K/mm3 (4.4-11.0)
[2021-01-31 13:15] LABS: Anion Gap 7 (5-15); BUN 9 mg/dL (7-18); BUN/Creat Ratio 13.3 RATIO (10-20); Chloride 102 mmol/L (98-107); Creatinine, Serum 0.68 mg/dL (0.70-1.30); EST Glomerular Filtration Rate 140 mL/min (>60); Est Glom Filt Rate - Afr Amer 169 mL/min (>60); Estimated Creatinine Clearance 166.99 ml/min; Glucose 91 mg/dL (74-106); Sodium Level 138 mmol/L (136-145)
[2021-01-31] MEDS: Morphine 4 MG/ML Syringe IV (14:48)
== END 2021-01-31 15:27 | disposition home or self-care (01) ==
PROVIDERS: Emergency Provider Emergency Medicine; PCP Family Medicine
DX: K50.011 Crohn's disease of small intestine with rectal bleeding (principal); Z79.52 Long term (current) use of systemic steroids; Z87.891 Personal history of nicotine dependence
CPT/HCPCS: 74177; 80048; 85025; 96361; 96374; 96375; 96376; 99283; J7030; Q9967; A4216; J2405

== ENCOUNTER 2021-05-01 04:46 | Emergency (ER) | payer OTHER, SELFPAY ==
[2021-05-01 04:47] VITALS: BP 130/93; PULSE 92; RESP 16; TEMP 36.9; O2SAT 99; BMI 23.1
[2021-05-01 05:30] LABS: Absolute Lymphocyte Count 2.84 X10^3/uL (0.83-4.51); Basophil# 0.03 X10^3/uL; Basophil% 0.3 % (0-1); Eosinophil# 0.38 X10^3/uL; Eosinophils% 3.2 % (0-5); Hematocrit 45.1 % (40-54); Hemoglobin 14.7 g/dL (13.0-16.5); Lymphocyte # 2.84 X10^3/ul (0.83-4.51); Mean Corp Hgb Conc 32.6 g/dL (32-36); Mean Corpuscular Hgb 27.4 pg (27.0-32.0); Mean Corpuscular Volume 84.1 fL (80-94); Mean Platelet Vol. 9.1 fl (6.2-12.0); Monocyte% 5.1 % (0-10); NRBC Flagged by Analyzer 0 % (0-5); Neutrophil # 7.95 X10^3/uL (2.7-7.7); Neutrophil % 67.1 % (47-70); Platelet Count 411 K/mm3 (150-450); RBC Distribution Width CV 13.2 % (11.6-14.6); RBC Distribution Width SD 40.3 fl (35.1-43.9); Red Blood Count 5.36 M/mm3 (4.6-6.2); White Blood Count 11.8 K/mm3 (4.4-11.0)
[2021-05-01] MEDS: MethylPREDNISolone 125 MG/2 ML Vial IV (05:30)
[2021-05-01] MEDS: Ketorolac 15 MG/ML Vial IV (05:30)
[2021-05-01] MEDS: 0.9% Normal Saline 1,000 ML 1000 ML IV (05:30)
[2021-05-01 05:46] LABS: ALB/GLOB Ratio 0.8 RATIO (0.9-2.4); AST(SGOT) 22 U/L (15-37); Alanine Aminotransfer ALT/SGPT 26 U/L (16-61); Albumin, Serum 3.8 g/dL (3.2-5.0); Alkaline Phosphatase 127 U/L (45-117); Anion Gap 4 (5-15); BUN 8 mg/dL (7-18); BUN/Creat Ratio 11.5 RATIO (10-20); Calcium,Total 8.7 mg/dL (8.5-10.1); Chloride 102 mmol/L (98-107); EST Glomerular Filtration Rate 135 mL/min (>60); Est Glom Filt Rate - Afr Amer 163 mL/min (>60); Estimated Creatinine Clearance 165.35 ml/min; Globulin 4.5 g/dL (2.2-4.2); Glucose 102 mg/dL (74-106); Lipase 126 U/L (73-393); Potassium 3.6 mmol/L (3.5-5.1); Protein, Total 8.3 g/dL (6.4-8.2); Sodium Level 138 mmol/L (136-145)
[2021-05-01 06:08] LABS: Color, Urine Yellow (Yellow); Glucose, Dipstick Normal (Normal); Ketone-Dipstick Negative (Negative); Leukocyte Esterase-Dipstick Negative /ul (Negative); Mucous, Urine 0 SEEN /hpf (<or=2+); Nitrite-Dipstick Negative (Negative); Occult Blood-Urine Negative /ul (Negative); Protein-Dipstick Negative (Negative); Red Blood Cells-Urine 0 SEEN /hpf (0-5); Specific Gravity, Urine 1.025 (1.002-1.030); Squamous Epithelial Cells - UA 0 SEEN /hpf (0-5); Urine Bilirubin Dipstick Negative (Negative); Urine Clarity Clear (Clear); Urine Urobilinogen Normal (Normal); White Blood Cells 0 SEEN /hpf (0-5)
[2021-05-01 06:18] LABS: Bacteria 1+ /hpf (None Seen)
--- NOTE | 2021-05-01 07:10 | ED.VIS.GI ---
HPI HPI - GI History of Present Illness Chief Complaint: Abd Pain Informant: patient Abdominal Pain/Flank Pain Onset: Today Narrative Narrative: Patient is a 36-year-old male with history of Crohn's disease, recently started on Humira at the beginning of the month presenting with abdominal and low back pain. Patient states it started tonight has been intermittent. It is in his epigastric region as well as in his suprapubic/lower abdomen. He states he feels like there is air moving on the right of his abdomen. He has associated nausea but no vomiting. He states his bowel movements have been normal. He does feel bloated. Denies any history of any abdominal surgeries. He sees Dr. Melgoza GI in [place] patient last had a Humira shot on the . Denies any urinary symptoms including dysuria, hematuria or frequency of urination. No fever or chills. No other complaints at this time. Prior similar symptoms: Yes PFSH PFSH Medical History Crohns disease Home Medications adalimumab [Humira(CF) Pen] mg SUBCUT 05/01/21 [History Last Taken Unknown] prednisone 40 mg PO DAILY #10 tab 05/01/21 [Rx Last Taken Unknown] Allergy/AdvReac Type Severity Reaction Status Date / Time Tetanus Vaccines and Toxoid Allergy Swelling Verified 01/31/21 12:14 Social History household members: significant other Smoking Status: Current every day smoker tobacco type: e-cigarettes substance use type: does not use ROS ROS ED Constitutional Constitutional ED: Denies chills or fever(s) ENT ENT ED: Denies rhinorrhea Cardiovascular Cardiovascular: Denies chest pain Respiratory/Chest Respiratory/Chest: Denies dyspnea Gastrointestinal Gastrointestinal: Reports abdominal pain and nausea; Denies constipation, diarrhea or vomiting Genitourinary Genitourinary ED: Denies dysuria, hematuria or urinary frequency Musculoskeletal Musculoskeletal: Reports back pain; Denies myalgias Integumentary Denies rash Neurologic Neurologic: Denies headache(s) or weakness Psychiatric Psychiatric: Denies depression EXAM Physical Exam Const Vital Signs: 05/01/21 04:47 Temperature 98.4 F Temperature Source Oral Pulse Rate 92 Respiratory Rate 16 Blood Pressure 130/93 H Blood Pressure Mean 105 Pulse Ox 99 Oxygen Delivery Method Room Air Positive well nourished and well developed General Appearance ED: well developed and NAD HEENT Reports moist mucous membranes normocephalic and atraumatic Eyes PERRL Neck supple Resp normal respiratory effort and clear to auscultation bilaterally Cardio regular rate, regular rhythm and no murmurs GI Inspection: Negative for abdominal distention Auscultation: normoactive bowel sounds Palpation: soft, tender RLQ and guarding RLQ; Negative for rigid Back/Spine no CVA tenderness Extremity full ROM General Extremety ED: Negative for edema General Extremity: Negative for edema Neuro moves all extremities Sensorium / Orientation: alert, oriented to person, oriented to place and oriented to time Motor Exam: Negative for general weakness Psych mental status grossly normal Skin Lesions: no lesions Rashes: no rashes MDM MDM MDM Narrative Medical decision making narrative: Patient is by for acute onset of right lower quadrant abdominal pain. It feels like his prior Crohn's flares. Patient is hemodynamically stable. He does have tenderness in his right lower quadrant. Outpatient has white blood count of 11.8. Other lab work is all normal. Urinalysis is normal. He is not having surgical history is low risk for small bowel obstruction. He has had multiple CTs in our system and I did review them. They have all shown acute Crohn's flare with circumferential thickening of the terminal ileum. This is consistent with where his pain is today. Discussed risk and benefits of repeat imaging. Given the short onset of his symptoms and his history as well as lack of severe features I will defer imaging at this time. Patient is agreeable with this. He is given dose of Toradol as well as IV fluids and Solu-Medrol. On repeat evaluation he is feeling better. We discharged home with a burst of steroids and instructions to follow-up with outpatient GI. Patient verbalizes agreement understand this plan. Discharged home in improved and stable condition. Lab Data Attestation: I reviewed the patient's lab results. Labs: Laboratory Results - last 24 hr 05/01/21 05/01/21 05/01/21 05:15 05:15 06:02 WBC 11.8 H RBC 5.36 Hgb 14.7 Hct 45.1 MCV 84.1 MCH 27.4 MCHC 32.6 RDW Std Deviation 40.3 RDW Coeff of Kuldeep 13.2 Plt Count 411 MPV 9.1 Immature Gran % (Auto) 0.300 Neut % (Auto) 67.1 Lymph % (Auto) 24.0 [place] % (Auto) 5.1 Eos % (Auto) 3.2 Baso % (Auto) 0.3 Absolute Neuts (auto) 8.0 H Absolute Lymphs (auto) 2.84 Nucleated RBC % 0 Sodium 138 Potassium 3.6 Chloride 102 Carbon Dioxide 32.0 Anion Gap 4 L BUN 8 Creatinine 0.70 Estim Creat Clear Calc 165.35 Est GFR (MDRD) Af Amer 163 Est GFR (MDRD) Non-Af 135 BUN/Creatinine Ratio 11.5 Glucose 102 Calcium 8.7 Total Bilirubin 0.20 AST 22 ALT 26 Alkaline Phosphatase 127 H Total Protein 8.3 H Albumin 3.8 Globulin 4.5 H Albumin/Globulin Ratio 0.8 L Lipase 126 Urine Color Yellow Urine Clarity Clear Urine pH 5.0 Ur Specific [place] 1.025 Urine Protein Negative Urine Glucose (UA) Normal Urine Ketones Negative Urine Occult Blood Negative Urine Nitrite Negative Urine Bilirubin Negative Urine Urobilinogen Normal Ur Leukocyte Esterase Negative Urine RBC 0 SEEN Urine WBC 0 SEEN Ur Squamous Epith Cells 0 SEEN Urine Bacteria 1+ Urine Mucus 0 SEEN Discharge Plan Triage Chief Complaint: Abd Pain ED Provider: Paulina Coyne Dx/Rx/DC Orders Clinical Impression: Crohn's colitis Instructions: ED Crohn's Disease Prescriptions: New prednisone 20 mg tablet 40 mg PO DAILY Qty: 10 RF: 0 No Action Humira(CF) Pen 40 mg/0.4 mL pen injector kit SUBCUT RF: 0 Primary Care Provider: Alfonso Velásquez Referrals: Alfonso Velásquez MD [Primary Care Provider] - Activity Restrictions/Additional Instructions: Call your GI doctor today for further recommendations. Disposition Disposition: Home, Self Care
== END 2021-05-01 07:32 | disposition home or self-care (01) ==
PROVIDERS: Emergency Provider Emergency Medicine; PCP Family Medicine; Visit Provider Emergency Medicine
DX: K50.90 Crohn's disease, unspecified, without complications (principal); F17.290 Nicotine dependence, other tobacco product, uncomplicated
CPT/HCPCS: 80053; 81001; 83690; 85025; 96361; 96374; 96375; 99283; J7030; A4216

== ENCOUNTER → 2021-06-07 | Outpatient (CLI) | payer OTHER, SELFPAY ==
[2021-06-07 10:05] LABS: Absolute Lymphocyte Count 1.29 X10^3/uL (0.83-4.51); Absolute Neutrophil Count 11.4 X10^3/uL (2.0-7.7); Basophil# 0.02 X10^3/uL; Basophil% 0.2 % (0-1); Hematocrit 42.3 % (40-54); Hemoglobin 14.3 g/dL (13.0-16.5); Lymphocyte # 1.29 X10^3/ul (0.83-4.51); Lymphocyte % 9.7 % (19-41); Mean Corp Hgb Conc 33.8 g/dL (32-36); Mean Corpuscular Hgb 27.8 pg (27.0-32.0); Mean Corpuscular Volume 82.1 fL (80-94); Mean Platelet Vol. 9.5 fl (6.2-12.0); Monocyte# 0.49 X10^3/uL; Monocyte% 3.7 % (0-10); NRBC Flagged by Analyzer 0 % (0-5); Neutrophil # 11.38 X10^3/uL (2.7-7.7); Neutrophil % 85.9 % (47-70); Platelet Count 465 K/mm3 (150-450); RBC Distribution Width CV 13.4 % (11.6-14.6); Red Blood Count 5.15 M/mm3 (4.6-6.2); White Blood Count 13.2 K/mm3 (4.4-11.0)
[2021-06-07 10:20] LABS: Vitamin D,25 Hydroxy 22.1 ng/mL
[2021-06-07 10:29] LABS: ALB/GLOB Ratio 0.9 RATIO (0.9-2.4); AST(SGOT) 14 U/L (15-37); Alanine Aminotransfer ALT/SGPT 26 U/L (16-61); Albumin, Serum 3.8 g/dL (3.2-5.0); Alkaline Phosphatase 104 U/L (45-117); Anion Gap 9 (5-15); BUN 14 mg/dL (7-18); BUN/Creat Ratio 22.8 RATIO (10-20); Calcium,Total 9.1 mg/dL (8.5-10.1); Chloride 101 mmol/L (98-107); Creatinine, Serum 0.62 mg/dL (0.70-1.30); EST Glomerular Filtration Rate 156 mL/min (>60); Est Glom Filt Rate - Afr Amer 188 mL/min (>60); Ferritin 106 ng/mL (26-388); Globulin 4.3 g/dL (2.2-4.2); Glucose 113 mg/dL (74-106); Iron 25 ug/dL (65-175); Iron Binding Capacity,Total 353 ug/dL (250-450); PERCENT IRON SATURATION 7.1 % (15.0-55.0); Potassium 4.4 mmol/L (3.5-5.1); Protein, Total 8.1 g/dL (6.4-8.2); Sodium Level 134 mmol/L (136-145)
== END | disposition home or self-care (01) ==
LOC: MFPLAB 08:33
PROVIDERS: PCP Family Medicine; Referring Provider Family Medicine; Visit Provider Family Medicine
DX: F17.200 Nicotine dependence, unspecified, uncomplicated (principal); K50.90 Crohn's disease, unspecified, without complications; E55.9 Vitamin D deficiency, unspecified
CPT/HCPCS: 36415; 80053; 82306; 82728; 83540; 83550; 85025

== ENCOUNTER 2021-10-17 15:22 | Emergency (ER) | payer BC, SELFPAY ==
[2021-10-17 15:23] VITALS: BP 125/85; PULSE 95; RESP 16; TEMP 36.1; O2SAT 97; BMI 22.4
--- NOTE | 2021-10-17 15:40 | EDS_ITS ---
HPI HPI - GI History of Present Illness Chief Complaint: Abd Pain Informant: patient Narrative Narrative: Patient presents with exacerbation of his Crohn's. He is currently on no medications. His last Humira was back in June. He was getting shots every 2 weeks. He states he was doing well until he ate meat on Saturday. Red meat commonly triggers his Crohn's. He started to get epigastric cramping and soreness. It is moving down lower in the abdomen it is just aching and sore diffusely. This is a typical pattern for him. He has some watery diarrhea. No black or blood was seen though. He has had some mild nausea but no vomiting. He states it is exacerbated if he eats. He is able to eat and drink without vomiting but he is just not eating much because of avoiding exacerbation. No urinary symptoms. [facility] Medical History Crohns disease Home Medications adalimumab 40 mg/0.4 mL subcutaneous pen kit (Humira(CF) Pen) 40 mg subcut 05/01/21 [History Last Taken Unknown] ondansetron 4 mg disintegrating tablet 4 mg PO Q8H PRN nausea and vomiting #10 tabs 10/17/21 [Rx Last Taken Unknown] prednisone 20 mg tablet 40 mg PO DAILY #10 tabs 10/17/21 [Rx Last Taken Unknown] Allergy/AdvReac Type Severity Reaction Status Date / Time Tetanus Vaccines and Toxoid Allergy Swelling Verified 10/17/21 15:25 Social History household members: significant other Smoking Status: Current every day smoker tobacco type: e-cigarettes substance use type: does not use ROS ROS ED Constitutional Constitutional ED: Denies chills, fever(s) or subjective ENT ENT ED: Denies rhinorrhea or sore throat Cardiovascular Cardiovascular: Denies chest pain or palpitations Respiratory/Chest Respiratory/Chest: Denies cough or dyspnea Gastrointestinal Gastrointestinal: Reports abdominal pain, diarrhea and nausea; Denies constipation, melena or vomiting Genitourinary Genitourinary ED: Denies dysuria, hematuria or urinary frequency Musculoskeletal Musculoskeletal: Denies arthralgias, back pain or myalgias Integumentary Denies Abrasions or rash Neurologic Neurologic: Denies headache(s), paresthesias or weakness Endocrine Endocrinology: Denies polydipsia or polyuria Hematologic/Lymphatic Hematologic/Lymphatic: Denies easy bleeding or easy bruising Allergic/Immunologic Allergic/Immunologic ED: Denies urticaria EXAM Physical Exam Const Vital Signs: 10/17/21 15:23 Temperature 97 F L Temperature Source Temporal Pulse Rate 95 Respiratory Rate 16 Blood Pressure 125/85 H Blood Pressure Mean 98 Pulse Ox 97 Oxygen Delivery Method Room Air Positive well nourished and well developed General Appearance ED: well developed HEENT HEENT Narrative: Mildly dry mucous membrane Eyes General Eye ED: Negative for pale conjunctiva or scleral icterus Neck supple and no JVD Resp normal respiratory effort and clear to auscultation bilaterally Cardio regular rate and regular rhythm GI non-distended GI Narrative: Bowel sounds do sound normal. Abdomen is thin and nondistended. It is nontender. There is really no tenderness on exam. He states he just aches. No CVA tenderness. I feel no mass. There are no rashes or vesicles. No inguinal pain or swelling. Back/Spine no CVA tenderness Extremity General Extremety ED: Negative for edema or tenderness General Extremity: Negative for edema Neuro Sensorium / Orientation: alert Psych mental status grossly normal Skin no wounds MDM MDM MDM Narrative Medical decision making narrative: We discussed some options with the patient. He has had multiple CAT scans. He has no fevers. He has no notable tenderness. No blood in the stool. We will hold off on initially ordering a CT. He is also not immunocompromised at this time. As long as he improves, and labs are not showing marked abnormalities, we will try to forego a CT. If needed we will order this later in his visit. Patient CBC electrolytes all look good. Liver function tests show minimal changes. Glucose was only 130. Urine is clean. Patient states she is feeling markedly better. I think with significant improvement, normal labs, relatively benign exam we can get him home. We will avoid CT scan at this time. He has benefited from a short course of steroids so we will try this. 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 Lab Data Attestation: I reviewed the patient's lab results. Labs: Laboratory Results - last 24 hr 10/17/21 10/17/21 10/17/21 16:05 16:05 17:00 WBC 6.8 RBC 5.06 Hgb 14.1 Hct 42.0 MCV 83.0 MCH 27.9 MCHC 33.6 RDW Std Deviation 37.9 RDW Coeff of Kuldeep 12.5 Plt Count 388 MPV 9.2 Immature Gran % (Auto) 0.300 Neut % (Auto) 69.0 Lymph % (Auto) 19.4 [place] % (Auto) 7.8 Eos % (Auto) 3.1 Baso % (Auto) 0.4 Absolute Neuts (auto) 4.7 Absolute Lymphs (auto) 1.32 Nucleated RBC % 0 Sodium 138 Potassium 3.7 Chloride 104 Carbon Dioxide 27.0 Anion Gap 7 BUN 8 Creatinine 0.72 Estim Creat Clear Calc 151.72 Est GFR (MDRD) Af Amer 157 Est GFR (MDRD) Non-Af 130 BUN/Creatinine Ratio 11.1 Glucose 131 H Calcium 8.9 Total Bilirubin 0.40 AST 11 L ALT 17 Alkaline Phosphatase 119 H Total Protein 7.2 Albumin 2.9 L Globulin 4.3 H Albumin/Globulin Ratio 0.7 L Lipase 81 Urine Color Straw Urine Clarity Clear Urine pH 7.0 Ur Specific [place] 1.005 Urine Protein Negative Urine Glucose (UA) Normal Urine Ketones Negative Urine Occult Blood Negative Urine Nitrite Negative Urine Bilirubin Negative Urine Urobilinogen Normal Ur Leukocyte Esterase Negative Urine RBC 0 SEEN Urine WBC 0 SEEN Ur Squamous Epith Cells 0 SEEN Urine Bacteria RARE Urine Mucus 0 SEEN Discharge Plan Triage Chief Complaint: Abd Pain ED Provider: Donaldo Jasmine Dx/Rx/DC Orders Clinical Impression: Exacerbation of Crohn's disease, Abdominal pain Instructions: ED Crohn's Disease Prescriptions: New prednisone 20 mg tablet 40 mg PO DAILY Qty: 10 0RF ondansetron 4 mg tablet,disintegrating 4 mg PO Q8H PRN (Reason: nausea and vomiting) Qty: 10 0RF No Action Humira(CF) Pen 40 mg/0.4 mL pen injector kit 40 mg SUBCUT Rx Instructions: bid month Primary Care Provider: Alfonso Velásquez Referrals: Alfonso Velásquez MD [Primary Care Provider] - As soon as possible Activity Restrictions/Additional Instructions: Follow-up with your family doctor or percussion welding machine operator as soon as possible Disposition Disposition: Home, Self Care
[2021-10-17] MEDS: Ondansetron 4 MG/2 ML Vial IV (16:03)
[2021-10-17] MEDS: 0.9% Normal Saline 1,000 ML 1000 ML IV (16:03)
[2021-10-17] MEDS: MethylPREDNISolone 125 MG/2 ML Vial 60 MG IV (16:03)
[2021-10-17] MEDS: Morphine 4 MG/ML Syringe IV (16:03)
[2021-10-17 16:31] LABS: Absolute Lymphocyte Count 1.32 X10^3/uL (0.83-4.51); Absolute Neutrophil Count 4.7 X10^3/uL (2.0-7.7); Basophil# 0.03 X10^3/uL; Basophil% 0.4 % (0-1); Eosinophil# 0.21 X10^3/uL; Eosinophils% 3.1 % (0-5); Hemoglobin 14.1 g/dL (13.0-16.5); Lymphocyte # 1.32 X10^3/ul (0.83-4.51); Lymphocyte % 19.4 % (19-41); Mean Corp Hgb Conc 33.6 g/dL (32-36); Mean Corpuscular Hgb 27.9 pg (27.0-32.0); Mean Platelet Vol. 9.2 fl (6.2-12.0); Monocyte# 0.53 X10^3/uL; Monocyte% 7.8 % (0-10); NRBC Flagged by Analyzer 0 % (0-5); Neutrophil # 4.68 X10^3/uL (2.7-7.7); Platelet Count 388 K/mm3 (150-450); RBC Distribution Width CV 12.5 % (11.6-14.6); RBC Distribution Width SD 37.9 fl (35.1-43.9); Red Blood Count 5.06 M/mm3 (4.6-6.2); White Blood Count 6.8 K/mm3 (4.4-11.0)
[2021-10-17 16:36] LABS: ALB/GLOB Ratio 0.7 RATIO (0.9-2.4); AST(SGOT) 11 U/L (15-37); Alanine Aminotransfer ALT/SGPT 17 U/L (16-61); Albumin, Serum 2.9 g/dL (3.2-5.0); Alkaline Phosphatase 119 U/L (45-117); Anion Gap 7 (5-15); BUN 8 mg/dL (7-18); BUN/Creat Ratio 11.1 RATIO (10-20); Calcium,Total 8.9 mg/dL (8.5-10.1); Chloride 104 mmol/L (98-107); Creatinine, Serum 0.72 mg/dL (0.70-1.30); EST Glomerular Filtration Rate 130 mL/min (>60); Est Glom Filt Rate - Afr Amer 157 mL/min (>60); Estimated Creatinine Clearance 151.72 ml/min; Globulin 4.3 g/dL (2.2-4.2); Glucose 131 mg/dL (74-106); Lipase 81 U/L (73-393); Potassium 3.7 mmol/L (3.5-5.1); Protein, Total 7.2 g/dL (6.4-8.2); Sodium Level 138 mmol/L (136-145)
[2021-10-17 17:22] LABS: Mucous, Urine 0 SEEN /hpf (<or=2+); Red Blood Cells-Urine 0 SEEN /hpf (0-5); Squamous Epithelial Cells - UA 0 SEEN /hpf (0-5); White Blood Cells 0 SEEN /hpf (0-5)
[2021-10-17 17:24] LABS: Color, Urine Straw (Yellow); Glucose, Dipstick Normal (Normal); Ketone-Dipstick Negative (Negative); Leukocyte Esterase-Dipstick Negative /ul (Negative); Nitrite-Dipstick Negative (Negative); Occult Blood-Urine Negative /ul (Negative); Protein-Dipstick Negative (Negative); Specific Gravity, Urine 1.005 (1.002-1.030); Urine Bilirubin Dipstick Negative (Negative); Urine Clarity Clear (Clear); Urine Urobilinogen Normal (Normal)
[2021-10-17 17:42] LABS: Bacteria RARE /hpf (None Seen)
== END 2021-10-17 19:03 | disposition home or self-care (01) ==
PROVIDERS: Emergency Provider Emergency Medicine; PCP Family Medicine; Visit Provider Emergency Medicine
DX: K50.90 Crohn's disease, unspecified, without complications (principal); F17.290 Nicotine dependence, other tobacco product, uncomplicated; R10.13 Epigastric pain
CPT/HCPCS: 80053; 81001; 83690; 85025; 96374; 96375; 99283; A4216; J2405

== ENCOUNTER 2022-03-02 15:21 | Emergency (ER) | payer BC, SELFPAY ==
[2022-03-02 15:22] VITALS: BP 123/78; PULSE 96; RESP 14; TEMP 36.9; O2SAT 99; BMI 22.7
[2022-03-02] MEDS: 0.9% Normal Saline 1,000 ML 250 ML IV (16:04)
[2022-03-02] MEDS: Dicyclomine 10 MG Capsule 20 MG PO (16:08)
[2022-03-02 16:09] LABS: Absolute Lymphocyte Count 1.66 X10^3/uL (0.83-4.51); Absolute Neutrophil Count 11.1 X10^3/uL (2.0-7.7); Basophil# 0.03 X10^3/uL; Basophil% 0.2 % (0-1); Eosinophil# 0.17 X10^3/uL; Eosinophils% 1.2 % (0-5); Hematocrit 45.9 % (40-54); Hemoglobin 15.2 g/dL (13.0-16.5); Lymphocyte # 1.66 X10^3/ul (0.83-4.51); Mean Corp Hgb Conc 33.1 g/dL (32-36); Mean Corpuscular Hgb 27.6 pg (27.0-32.0); Mean Corpuscular Volume 83.5 fL (80-94); Mean Platelet Vol. 9.3 fl (6.2-12.0); Monocyte# 0.89 X10^3/uL; Monocyte% 6.4 % (0-10); NRBC Flagged by Analyzer 0 % (0-5); Neutrophil # 11.08 X10^3/uL (2.7-7.7); Neutrophil % 79.8 % (47-70); Platelet Count 374 K/mm3 (150-450); RBC Distribution Width CV 12.8 % (11.6-14.6); RBC Distribution Width SD 38.7 fl (35.1-43.9); White Blood Count 13.9 K/mm3 (4.4-11.0)
--- NOTE | 2022-03-02 16:13 | EDS_ITS ---
HPI HPI - GI History of Present Illness Chief Complaint: Diarrhea Detail of Chief Complaint: Diarrhea and crampy abdominal pain Informant: patient Abdominal Pain/Flank Pain Onset: Today (The pain has been worse over the past several hours.) and Days Context: Sudden Onset Timing: Intermittent Quality: Cramping Location: Diffuse Current Severity: Mild Maximum Severity: Severe Worsened by: Nothing; Not Worsened By Car ride, Food or Movement Relieved by: Nothing Nausea/Vomiting/Emesis GI Symptom: Positive for Nausea; Negative for Vomiting Diarrhea/Melena/Hematochezia GI Symptom: Positive for Diarrhea (2 soft mushy stools per day without blood.) Associated Symptoms Associated Symptoms: Negative for Dysuria, Frequency, Hematuria or Urgency Narrative Narrative: Patient is a 36-year-old male with history of Crohn's disease. His last admission was September 19, 2017. He was started on Humira 1.5 years ago. His last dose was January 25. He is presently not taking prednisone. He presents because of pain that he describes as crampy. He has had severe cramping pain every 15 minutes for the past couple of hours. He denies fever, chills or night sweats. He denies upper respiratory symptoms. He denies cardiac or respiratory symptoms. He denies dysuria, frequency, urgency or hematuria. He does report nausea without vomiting. His rehab therapy manager is Dr. Gann at [facility]. Prior similar symptoms: Yes Recent Illness/Hospitalization: No PFSH [facility] Medical History Crohns disease Home Medications adalimumab 40 mg/0.4 mL subcutaneous pen kit (Humira(CF) Pen) 40 mg subcut 0 05/01/21 [History Last Taken Unknown] ondansetron 4 mg disintegrating tablet 4 mg PO Q8H PRN nausea and vomiting #10 tabs 10/17/21 [Rx Last Taken Unknown] prednisone 20 mg tablet 40 mg PO DAILY #10 tabs 10/17/21 [Rx Last Taken Unknown] dicyclomine 10 mg capsule 20 mg PO TIDAC #20 CAPSULES 03/02/22 [Rx Last Taken Unknown] Allergy/AdvReac Type Severity Reaction Status Date / Time Tetanus Vaccines and Toxoid Allergy Swelling Verified 03/02/22 16:11 Social History household members: significant other Smoking Status: Current every day smoker tobacco type: e-cigarettes substance use type: does not use ROS ROS ED Constitutional Constitutional ED: Denies chills, fever(s), subjective, sweats or weight loss ENT ENT ED: Denies ear pain, rhinorrhea or sore throat Cardiovascular Cardiovascular: Denies chest pain, palpitations or racing heartbeat Respiratory/Chest Respiratory/Chest: Denies cough, dyspnea or dyspnea on exertion Gastrointestinal Gastrointestinal: Reports abdominal pain, diarrhea and nausea; Denies constipation, melena or vomiting Genitourinary Genitourinary ED: Denies dysuria, hematuria or urinary frequency Musculoskeletal Musculoskeletal: Denies arthralgias, back pain, myalgias or neck pain Integumentary Denies rash Neurologic Neurologic: Denies paresthesias or weakness Endocrine Endocrinology: Denies polydipsia, polyphagia or polyuria Hematologic/Lymphatic Hematologic/Lymphatic: Denies easy bleeding or easy bruising EXAM Physical Exam Const Vital Signs: 03/02/22 15:22 Temperature 98.5 F Temperature Source Temporal Pulse Rate 96 Respiratory Rate 14 Blood Pressure 123/78 H Blood Pressure Mean 93 Pulse Ox 99 Oxygen Delivery Method Room Air Positive well nourished and well developed Constitutional Narrative: Patient appears slightly pale. He does not appear well. He does not appear toxic. General Appearance ED: well developed, NAD and pallor HEENT Reports dry mucous membranes HEENT Narrative: Head is [place]. There is notes of trauma. Ears are normal. Nares are patent. Posterior pharynx is normal. Mouth ED: Yes dry mucous membranes Mouth: dry mucous membranes Eyes PERRL and EOMs intact bilaterally Neck no lymphadenopathy, supple and no JVD Resp normal respiratory effort and clear to auscultation bilaterally Cardio regular rate, regular rhythm, S1 normal heart sound and S2 normal heart sound GI no masses Auscultation: hypoactive bowel sounds Palpation: soft and tender; Negative for rigid, hepatomegaly, splenomegaly, hernia, mass or pulsatile mass Back/Spine no CVA tenderness Cervical Spine: Negative for cervical spine tenderness Thoracic Spine / Upper Back: Negative for thoracic spinal tenderness Lumbar Spine / Lower Back: Negative for lumbar spinal tenderness Extremity full ROM General Extremety ED: Negative for edema or tenderness General Extremity: Negative for edema Neuro CN's II-XII intact bilaterally, moves all extremities, no sensory deficits noted and gait normal Sensorium / Orientation: alert Psych mental status grossly normal and thought process normal Skin no wounds General Skin Exam: pallor; Negative for jaundice Lesions: no lesions Rashes: no rashes MDM MDM MDM Narrative Medical decision making narrative: Patient with colicky pain. His abdominal exam is unremarkable. Will obtain CBC to assess white count differential. BMP was obtained to assess renal function and specifically evaluate for hypokalemia. Prior records were reviewed. His last admission was September 19, 2017. The discharge summary and admission note were reviewed. His gastroenterology at that time was Dr. Aubrey Pineda. His rehab therapy manager presently Dr. Lynn who practices at [facility]. Patient was reassessed. He appears in no discomfort. Abdominal exam is slightly improved. Plan is to discharge with prescription for dicyclomine. Lab Data Attestation: I reviewed the patient's lab results. Lab results narrative: White count is elevated. This is nonspecific. Basic metabolic panel is unremarkable. Labs: Laboratory Results - last 24 hr 03/02/22 03/02/22 15:35 15:35 WBC 13.9 H RBC 5.50 Hgb 15.2 Hct 45.9 MCV 83.5 MCH 27.6 MCHC 33.1 RDW Std Deviation 38.7 RDW Coeff of Kuldeep 12.8 Plt Count 374 MPV 9.3 Immature Gran % (Auto) 0.400 Neut % (Auto) 79.8 H Lymph % (Auto) 12.0 L [place] % (Auto) 6.4 Eos % (Auto) 1.2 Baso % (Auto) 0.2 Absolute Neuts (auto) 11.1 H Absolute Lymphs (auto) 1.66 Nucleated RBC % 0 Sodium 139 Potassium 3.7 Chloride 106 Carbon Dioxide 26.0 Anion Gap 7 BUN 11 Creatinine 0.72 Estim Creat Clear Calc 153.86 Est GFR (MDRD) Af Amer 157 Est GFR (MDRD) Non-Af 130 BUN/Creatinine Ratio 15.3 Glucose 97 Calcium 9.1 Discharge Plan Triage Chief Complaint: Diarrhea ED Provider: Joshua Bernardo Dx/Rx/DC Orders Clinical Impression: Abdominal pain, colicky, History of Crohn's disease, Diarrhea Instructions: Crohns Disease Dc Prescriptions: New dicyclomine 10 mg capsule 20 mg PO TIDAC Qty: 20 0RF No Action Humira(CF) Pen 40 mg/0.4 mL pen injector kit 40 mg SUBCUT Rx Instructions: bid month prednisone 20 mg tablet 40 mg PO DAILY Qty: 10 0RF ondansetron 4 mg tablet,disintegrating 4 mg PO Q8H PRN (Reason: nausea and vomiting) Qty: 10 0RF Primary Care Provider: Alfonso Velásquez Referrals: Alfonso Velásquez MD [Primary Care Provider] - Doctor,Your [Non-Staff] - 3-5 Days if not improving Activity Restrictions/Additional Instructions: Follow-up with your rehab therapy manager, Dr. Lynn, if no improvement in 3 to 5 days. Disposition Disposition: Home, Self Care
[2022-03-02 16:28] LABS: Anion Gap 7 (5-15); BUN 11 mg/dL (7-18); BUN/Creat Ratio 15.3 RATIO (10-20); Calcium,Total 9.1 mg/dL (8.5-10.1); Chloride 106 mmol/L (98-107); Creatinine, Serum 0.72 mg/dL (0.70-1.30); EST Glomerular Filtration Rate 130 mL/min (>60); Est Glom Filt Rate - Afr Amer 157 mL/min (>60); Estimated Creatinine Clearance 153.86 ml/min; Glucose 97 mg/dL (74-106); Potassium 3.7 mmol/L (3.5-5.1); Sodium Level 139 mmol/L (136-145)
[2022-03-02 16:55] VITALS: BP 118/62; PULSE 71; RESP 15; O2SAT 99
== END 2022-03-02 16:56 | disposition home or self-care (01) ==
PROVIDERS: Emergency Provider Emergency Medicine; PCP Family Medicine; Visit Provider Emergency Medicine
DX: R10.9 Unspecified abdominal pain (principal); K50.90 Crohn's disease, unspecified, without complications; R19.7 Diarrhea, unspecified; F17.290 Nicotine dependence, other tobacco product, uncomplicated
CPT/HCPCS: 80048; 85025; 99284; J7030; A4216

== ENCOUNTER → 2023-01-18 | Outpatient (CLI) | payer BC, SELFPAY ==
[2023-01-18 10:25] LABS: Absolute Lymphocyte Count 1.79 X10^3/uL (0.83-4.51); Basophil# 0.06 X10^3/uL; Basophil% 0.6 % (0-1); Eosinophil# 0.34 X10^3/uL; Eosinophils% 3.4 % (0-5); Hematocrit 38.7 % (40-54); Hemoglobin 12.3 g/dL (13.0-16.5); Lymphocyte # 1.79 X10^3/ul (0.83-4.51); Lymphocyte % 17.9 % (19-41); Mean Corp Hgb Conc 31.8 g/dL (32-36); Mean Corpuscular Hgb 26.1 pg (27.0-32.0); Mean Corpuscular Volume 82.2 fL (80-94); Mean Platelet Vol. 8.7 fl (6.2-12.0); Monocyte# 0.76 X10^3/uL; Monocyte% 7.6 % (0-10); NRBC Flagged by Analyzer 0 % (0-5); Neutrophil # 7.02 X10^3/uL (2.7-7.7); Neutrophil % 70.1 % (47-70); Platelet Count 439 K/mm3 (150-450); RBC Distribution Width CV 13.9 % (11.6-14.6); RBC Distribution Width SD 41.1 fl (35.1-43.9); Red Blood Count 4.71 M/mm3 (4.6-6.2)
[2023-01-18 10:58] LABS: Vitamin B12 390 pg/mL (211-911); Vitamin D,25 Hydroxy 20.4 ng/mL
[2023-01-18 11:03] LABS: ALB/GLOB Ratio 0.8 RATIO (0.9-2.4); AST(SGOT) 9 U/L (15-37); Alanine Aminotransfer ALT/SGPT 15 U/L (16-61); Albumin, Serum 3.1 g/dL (3.2-5.0); Alkaline Phosphatase 109 U/L (45-117); Anion Gap 4 (5-15); BUN 10 mg/dL (7-18); Calcium,Total 8.4 mg/dL (8.5-10.1); Chloride 105 mmol/L (98-107); Creatinine, Serum 0.67 mg/dL (0.70-1.30); EST Glomerular Filtration Rate 141 mL/min (>60); Est Glom Filt Rate - Afr Amer 170 mL/min (>60); Ferritin 95 ng/mL (26-388); Glucose 82 mg/dL (74-106); Iron 36 ug/dL (65-175); Iron Binding Capacity,Total 285 ug/dL (250-450); Magnesium 2.3 mg/dL (1.6-2.6); Potassium 3.6 mmol/L (3.5-5.1); Protein, Total 7.1 g/dL (6.4-8.2); Sodium Level 138 mmol/L (136-145)
== END | disposition home or self-care (01) ==
LOC: MFPLAB 09:26
PROVIDERS: PCP Family Medicine; Visit Provider Family Medicine
DX: E61.1 Iron deficiency (principal); K50.90 Crohn's disease, unspecified, without complications; E55.9 Vitamin D deficiency, unspecified
CPT/HCPCS: 36415; 80053; 82306; 82607; 82728; 83540; 83550; 83735; 85025; 87086

== ENCOUNTER → 2023-04-18 | Outpatient (CLI) | payer BC, SELFPAY ==
[2023-04-18 10:54] LABS: Vitamin B12 337 pg/mL (211-911); Vitamin D,25 Hydroxy 47.8 ng/mL
[2023-04-18 11:11] LABS: ALB/GLOB Ratio 0.8 RATIO (0.9-2.4); AST(SGOT) 12 U/L (15-37); Alanine Aminotransfer ALT/SGPT 14 U/L (16-61); Albumin, Serum 3.1 g/dL (3.2-5.0); Alkaline Phosphatase 100 U/L (45-117); Anion Gap 7 (5-15); BUN 10 mg/dL (7-18); BUN/Creat Ratio 13.3 RATIO (10-20); Calcium,Total 9.1 mg/dL (8.5-10.1); Chloride 106 mmol/L (98-107); Creatinine, Serum 0.75 mg/dL (0.70-1.30); EST Glomerular Filtration Rate 122 mL/min (>60); Est Glom Filt Rate - Afr Amer 147 mL/min (>60); Ferritin 68 ng/mL (26-388); Glucose 77 mg/dL (74-106); Iron 20 ug/dL (65-175); Iron Binding Capacity,Total 272 ug/dL (250-450); Magnesium 2.2 mg/dL (1.6-2.6); Potassium 3.7 mmol/L (3.5-5.1); Protein, Total 7.1 g/dL (6.4-8.2); Sodium Level 142 mmol/L (136-145)
== END | disposition home or self-care (01) ==
LOC: MFPLAB 08:30
PROVIDERS: PCP Family Medicine; Visit Provider Family Medicine
DX: K50.90 Crohn's disease, unspecified, without complications (principal); E55.9 Vitamin D deficiency, unspecified
CPT/HCPCS: 36415; 80053; 82306; 82607; 82728; 83540; 83550; 83735

== ENCOUNTER → 2023-05-02 | Outpatient (CLI) | payer BC, SELFPAY ==
--- NOTE | 2023-05-02 07:31 | CT_ITS ---
STUDY: CT ABDOMEN AND PELVIS WITH CONTRAST REASON FOR EXAM: Male, 38 years old. Crohn''s disease, unspecified, without complications RADIATION DOSAGE (If Supplied By Facility): CTDIvol = ( 13.05 ) mGy, DLP = ( 1027.67 ) mGycm TECHNIQUE: Transaxial images were obtained from the dome of the diaphragm to the symphysis pubis without oral contrast. 100 CC ISOVUE 300 was administered. Sagittal and coronal images were reconstructed. Individualized dose optimization techniques were used for this CT. COMPARISON: Comparison is made with prior study dated January 31, 2021. FINDINGS: The visualized lung bases are unremarkable. The visualized portions of the heart are within normal limits. Normal liver. Normal gallbladder and extrahepatic biliary system. Normal spleen. Normal pancreas. Normal bilateral adrenal glands. Normal right kidney. Normal left kidney. Normal visualized stomach. There are several thickened small bowel loops in the distal ileum with the increased markings in the surrounding fat. This is suggestive of a recurrent Crohn''s disease. Normal colon. The appendix is visualized and appears normal. Normal abdominal aorta. Normal inferior vena cava. Normal retroperitoneum. Normal urinary bladder. Normal abdominal wall. Normal osseous structures. CT/Abdomen/Pelvis WITH Contrast IMPRESSION: Circumferential thickening of the wall of the cervical distal ileal loops with evidence of increased markings in the surrounding peritoneal fat in keeping with the known diagnosis of the Crohn''s disease. This has progressed slightly as compared to prior study. Electronically Signed: Cruzito Lopez MD at 15:43 EDT ,
== END | disposition home or self-care (01) ==
LOC: CT 07:30
PROVIDERS: PCP Family Medicine
DX: K63.89 Other specified diseases of intestine (principal); K50.90 Crohn's disease, unspecified, without complications; K63.5 Polyp of colon; D50.9 Iron deficiency anemia, unspecified; R19.4 Change in bowel habit; R63.4 Abnormal weight loss
CPT/HCPCS: 74177; Q9967

== ENCOUNTER → 2023-10-28 | Outpatient (CLI) | payer BC, SELFPAY ==
[2023-10-28 15:05] LABS: Absolute Lymphocyte Count 1.69 X10^3/uL (0.83-4.51); Absolute Neutrophil Count 7.7 X10^3/uL (2.0-7.7); Basophil# 0.03 X10^3/uL; Basophil% 0.3 % (0-1); Eosinophils% 1.9 % (0-5); Hematocrit 40.7 % (40-54); Lymphocyte # 1.69 X10^3/ul (0.83-4.51); Lymphocyte % 16.1 % (19-41); Mean Corp Hgb Conc 31.9 g/dL (32-36); Mean Corpuscular Hgb 26.3 pg (27.0-32.0); Mean Corpuscular Volume 82.4 fL (80-94); Mean Platelet Vol. 9.1 fl (6.2-12.0); Monocyte# 0.79 X10^3/uL; Monocyte% 7.5 % (0-10); NRBC Flagged by Analyzer 0 % (0-5); Neutrophil # 7.72 X10^3/uL (2.7-7.7); Neutrophil % 73.8 % (47-70); Platelet Count 470 K/mm3 (150-450); RBC Distribution Width CV 13.1 % (11.6-14.6); RBC Distribution Width SD 38.7 fl (35.1-43.9); Red Blood Count 4.94 M/mm3 (4.6-6.2); White Blood Count 10.5 K/mm3 (4.4-11.0)
[2023-10-28 15:17] LABS: Erythrocyte Sedimentation Rate 14 mm/hr (0-20)
[2023-10-28 15:42] LABS: ALB/GLOB Ratio 0.7 RATIO (0.9-2.4); AST(SGOT) 8 U/L (15-37); Alanine Aminotransfer ALT/SGPT 10 U/L (16-61); Albumin, Serum 3.1 g/dL (3.2-5.0); Alkaline Phosphatase 107 U/L (45-117); Anion Gap 6 (5-15); BUN 8 mg/dL (7-18); BUN/Creat Ratio 11.6 RATIO (10-20); Calcium,Total 9.4 mg/dL (8.5-10.1); Chloride 104 mmol/L (98-107); Creatinine, Serum 0.69 mg/dL (0.70-1.30); EST Glomerular Filtration Rate 135 mL/min (>60); Est Glom Filt Rate - Afr Amer 164 mL/min (>60); Ferritin 111 ng/mL (26-388); Globulin 4.4 g/dL (2.2-4.2); Glucose 71 mg/dL (74-106); Iron 18 ug/dL (65-175); Iron Binding Capacity,Total 259 ug/dL (250-450); Potassium 3.9 mmol/L (3.5-5.1); Protein, Total 7.5 g/dL (6.4-8.2); Rheumatoid Factor < 10.0 IU/mL (<15); Sodium Level 137 mmol/L (136-145)
[2023-10-28 16:58] LABS: Vitamin D,25 Hydroxy 64.7 ng/mL
[2023-10-30 17:08] LABS: ANTINUCLEAR ANTIBODIES DIRECT Negative (Negative)
== END | disposition home or self-care (01) ==
PROVIDERS: PCP Family Medicine; Referring Provider Family Medicine; Visit Provider Family Medicine
DX: E61.1 Iron deficiency (principal); E55.9 Vitamin D deficiency, unspecified; M25.50 Pain in unspecified joint
CPT/HCPCS: 36415; 80053; 82306; 82728; 83540; 83550; 85025; 85652; 86038; 86431

== ENCOUNTER 2024-11-09 23:11 | Emergency (ER) | payer BC, SELFPAY ==
--- OUTSIDE RECORDS SUMMARY | 2024-11-09 10:23 | XMS RPT_ITS ---
Author Name Auto Generated Organization [facility] Care Team Providers Care Field Education Coordinator Name Role Phone DEEPAK NUNEZ Primary Care Unavailable YAMIL BURNS Attending Unavailable PROBLEMS DATE TYPE CONDITION / CODE ATTENDING STATUS [facility] 11/09/2024 Active Generalized abdo dipti pain / R10.84(ICD-10) YAMIL BURNS Active [facility] 11/09/2024 Active Diarrhea, unspec ified type / R19.7(ICD-10) YAMIL BURNS Active [facility] PROCEDURES No Procedure Records Found RESULTS PROGRESS Observed: 11/09/2024 10:34 AM Status: COMPLETED Source: [facility] HNO ID: [id number] Author: YAMIL BURNS APRN.KARATE INSTRUCTOR Service: ? Author Type: Nurse Practitioner Type: Progress Notes Filed: 11/09/2024 12:11 Note Text: [facility] Clemons is a 39 year old male with a history of Crohn's disease. Presenting with 4/10 abdominal pain, and diarrhea x 3 days. Associated symptoms include abdominal bloating, and intermittent nausea. Pertinent negatives include no fever, chills, vomiting, blood in stool, light-headedness, or dizziness. Patient reports that his symptoms are similar to his normal Crohn's flare. Review of Systems Constitutional: Negative for appetite change (reports eating bland food currently to help with his flare), chills and fever. Respiratory: Negative for chest tightness and shortness of breath. Gastrointestinal: Positive for abdominal distention, abdominal pain (4/10 sharp crampy), diarrhea (reports x6 episodes in 3 days) and nausea (reports intermittent). Negative for blood in stool, rectal pain and vomiting. Reports no increased amounts of burping, or flatualance Neurological: Negative for dizziness, light-headedness and headaches. Objective BP 102/62 Pulse 80 Temp 36.4 ?C (97.5 ?F) Resp 16 Wt 73 kg (160 lb 15 oz) SpO2 97% BMI 21.23 kg/m? Physical Exam Vitals and nursing note reviewed. Constitutional: General: He is not in acute distress. Appearance: Normal appearance. He is not ill-appearing or toxic-appearing. HENT: Head: Normocephalic. Cardiovascular: Rate and Rhythm: Normal rate and regular rhythm. Heart sounds: Normal heart sounds, S1 normal and S2 normal. No murmur heard. Pulmonary: Effort: Pulmonary effort is normal. Breath sounds: Normal breath sounds. No decreased breath sounds or wheezing. Abdominal: General: Abdomen is flat. Bowel sounds are increased. There is distension. There is no abdominal bruit. Palpations: Abdomen is soft. There is no mass or pulsatile mass. Tenderness: There is no abdominal tenderness. There is no guarding or rebound. Hernia: No hernia is present. Skin: General: Skin is warm and dry. Capillary Refill: Capillary refill takes less than 2 seconds. Neurological: Mental Status: He is alert and oriented to person, place, and time. Psychiatric: Mood and Affect: Mood normal. {ASSESSMENT/PLAN: 1. Generalized abdominal pain - ICD9: 789.07, ICD10: R10.84 (primary diagnosis) - Patient sen to ER for further evaluation of abdominal pain. Patient verbalized understanding and will drive himself. 2. Diarrhea, unspecified type - ICD9: 787.91, ICD10: R19.7 At patient usually gets a CAT scan with his abdominal pain and the last 1 he had showed appendix involvement. So sending to the ER just to verify Disposition The patient was discharged (Emergency room). Procedures Return to [facility], call primary care provider, or go to the emergency department for problems, worsening, increased or new symptoms, etc. Red flag symptoms discussed with the patient and when to go to ER. Patient verbalized understanding to plan of care. Radha Menendez BASTING P[employer]ER student CNOV Observed: 11/09/2024 10:30 AM Status: COMPLETED Source: [facility] Office Visit ([facility]) JAY CLEMONS ([id number]) 1985 M Date Time Provider Department 11/09/24 10:30 AM YAMIL BURNS During your visit today, we recorded the following information about you: Temperature Pulse Respiration Blood pressure 97.5 degrees 80/minute 16/minute 102/62 Weight 73 kg Yamil Burns, FELIPE.KARATE INSTRUCTOR 11/09/2024 12:11 PM Signed [facility] Subjective Jay Clemons is a 39 year old male with a history of Crohn's disease. Presenting with 4/10 abdominal pain, and diarrhea x 3 days. Associated symptoms include abdominal bloating, and intermittent nausea. Pertinent negatives include no fever, chills, vomiting, blood in stool, light-headedness, or dizziness. Patient reports that his symptoms are similar to his normal Crohn's flare. Review of Systems Constitutional: Negative for appetite change (reports eating bland food currently to help with his flare), chills and fever. Respiratory: Negative for chest tightness and shortness of breath. Gastrointestinal: Positive for abdominal distention, abdominal pain (4/10 sharp crampy), diarrhea (reports x6 episodes in 3 days) and nausea (reports intermittent). Negative for blood in stool, rectal pain and vomiting. Reports no increased amounts of burping, or flatualance Neurological: Negative for dizziness, light-headedness and headaches. Objective BP 102/62 Pulse 80 Temp 36.4 ?C (97.5 ?F) Resp 16 Wt 73 kg (160 lb 15 oz) SpO2 97% BMI 21.23 kg/m? Physical Exam Vitals and nursing note reviewed. Constitutional: General: He is not in acute distress. Appearance: Normal appearance. He is not ill-appearing or toxic-appearing. HENT: Head: Normocephalic. Cardiovascular: Rate and Rhythm: Normal rate and regular rhythm. Heart sounds: Normal heart sounds, S1 normal and S2 normal. No murmur heard. Pulmonary: Effort: Pulmonary effort is normal. Breath sounds: Normal breath sounds. No decreased breath sounds or wheezing. Abdominal: General: Abdomen is flat. Bowel sounds are increased. There is distension. There is no abdominal bruit. Palpations: Abdomen is soft. There is no mass or pulsatile mass. Tenderness: There is no abdominal tenderness. There is no guarding or rebound. Hernia: No hernia is present. Skin: General: Skin is warm and dry. Capillary Refill: Capillary refill takes less than 2 seconds. Neurological: Mental Status: He is alert and oriented to person, place, and time. Psychiatric: Mood and Affect: Mood normal. {ASSESSMENT/PLAN: 1. Generalized abdominal pain - ICD9: 789.07, ICD10: R10.84 (primary diagnosis) - Patient sen to ER for further evaluation of abdominal pain. Patient verbalized understanding and will drive himself. 2. Diarrhea, unspecified type - ICD9: 787.91, ICD10: R19.7 At patient usually gets a CAT scan with his abdominal pain and the last 1 he had showed appendix involvement. So sending to the ER just to verify Disposition The patient was discharged (Emergency room). Procedures Return to [facility], call primary care provider, or go to the emergency department for problems, worsening, increased or new symptoms, etc. Red flag symptoms discussed with the patient and when to go to ER. Patient verbalized understanding to plan of care. Radha Menendez [employer]ING P[employer]ER student Allergies As of Date: 11/09/2024 Noted Allergy Reaction TETANUS VACCINES AND TOXOID 01/31/2005 7 - Swelling Date Reviewed: 11/09/2024 Reviewed by: Radha Menendez - Fully Assessed Reason for Visit: Diarrhea [35] Cmt: abdominal cramping x 3 days, ? 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 Right low back pain [M54.50] 11/29/2009 Lumbago [M54.50] 12/15/2009 Vitamin D deficiency [E55.9] 06/14/2010 Sleep walking disorder [F51.3] 10/06/2014 Appendicitis [K37] 10/13/2018 10/15/2018 Encounter Status:Closed by YAMIL BURNS on 11/09/24 ALLERGIES DATE TYPE / CODE NAME / CODE REACTION SEVERITY SOURCE 01/31/2005 Drug Class/[id number]( SNOMED CT) TETANUS VACCINES AND TOXOID SWELLING [facility] ENCOUNTERS ADMIT/DISCHARGE ACCOUNT NUMBER ADMITTING ENCOUNTER CLASS LOC ATION SOURCE 11/09/2024/ 5 [id number] Ambulatory [facility] HospitalBuild ing:MODESTA [facility] PAYERS ENCOUNTER GUARANTOR PAYER SUBSCRIBER SOURCE 11/09/2024 Primary Insurance:BLUE CARD PPO OOSPolicy Number: [id number] [id number] Date:[id number] Name:Candace SANDHUOB: [id number] [place] [address] [facility]
[2024-11-09 23:12] VITALS: BP 124/86; PULSE 67; RESP 16; TEMP 37.1; O2SAT 100; BMI 22.1
[2024-11-09 23:48] LABS: Hematocrit 39.8 % (40-54); Hemoglobin 13.0 g/dL (13.0-16.5); Immature Granulocytes Count 0.030 X10^3/uL (0.0-0.0); Mean Corp Hgb Conc 32.7 g/dL (32-36); Mean Corpuscular Volume 82.4 fL (80-94); Mean Platelet Vol. 8.4 fl (6.2-12.0); NRBC Flagged by Analyzer 0 % (0-5); Platelet Count 418 K/mm3 (150-450); RBC Distribution Width CV 13.2 % (11.6-14.6); RBC Distribution Width SD 39.4 fl (35.1-43.9); Red Blood Count 4.83 M/mm3 (4.6-6.2); White Blood Count 6.5 K/mm3 (4.4-11.0)
[2024-11-10] MEDS: 0.9% Normal Saline (1000mL) 1,000 ML 999 ML IV (00:05)
[2024-11-10 00:07] LABS: Mucous, Urine 0 SEEN /hpf (<or=2+); Red Blood Cells-Urine 0 SEEN /hpf (0-5)
[2024-11-10 00:09] LABS: Color, Urine Yellow (Yellow); Glucose, Dipstick Normal (Normal); Ketone-Dipstick Negative (Negative); Leukocyte Esterase-Dipstick Negative /ul (Negative); Nitrite-Dipstick Negative (Negative); Occult Blood-Urine Negative /ul (Negative); Protein-Dipstick 15 mg/dl (Negative); Specific Gravity, Urine 1.020 (1.002-1.030); Urine Bilirubin Dipstick Negative (Negative)
[2024-11-10 00:17] LABS: Squamous Epithelial Cells - UA 0-5 SEEN /hpf (0-5)
[2024-11-10 00:37] LABS: AST(SGOT) 17 U/L (<=37); Alanine Aminotransfer ALT/SGPT 11 U/L (<=46); Albumin, Serum 3.4 g/dL (3.5-5.0); Alkaline Phosphatase 100 U/L (40-129); Anion Gap 10 (5-15); BUN 12 mg/dL (4-19); BUN/Creat Ratio 18.5 RATIO (10-20); Calcium,Total 8.7 mg/dL (7.6-11.0); Carbon Dioxide 24.6 mmol/L (21.0-32.0); Chloride 103 mmol/L (98-108); Estimated Creatinine Clearance 163.23 ml/min (50-250); Globulin 3.0 g/dL (2.2-4.2); Glucose 96 mg/dL (70-99); Lipase 23 U/L (13-75); Potassium 3.9 mmol/L (3.3-5.1)
[2024-11-10 01:12] VITALS: BP 116/49; PULSE 78; RESP 18; O2SAT 97
--- NOTE | 2024-11-10 01:33 | EDS_ITS ---
HPI HPI - GI History of Present Illness Chief Complaint: Abd Pain Informant: patient Narrative Narrative: Patient is a 39-year-old male with history of of Crohn's disease (not currently on any medication for previously was on Humira however had stopped it due to insurance change) and nicotine use (vapes) presenting with worsening abdominal pain over the past 2 weeks. States it feels kind like a Crohn's flare however is not getting better so he came in. Notes he did have 1 episode of blood in his stool a couple days ago. Has had diarrhea, crampy abdominal pain and bloating as well as some mild nausea. Denies any fever or chills. Has had some urinary urgency denies any dysuria. Denies any lightheadedness. Last colonoscopy was about 2 years ago. Has not take any medication for his Crohn's disease. No other complaints or concerns at this time. [facility] Medical History Crohns disease Home Medications ?Medication ?Instructions ?Recorded ?Last Taken ?Type adalimumab 40 mg/0.4 mL 40 mg subcut 05/01/21 Unknow n History subcutaneous pen kit (Humira(CF) Pen) ondansetron 4 mg disintegrating 4 mg PO Q8H PRN nausea and 10/17/21 Unknown Rx tablet vomiting #10 tabs ciprofloxacin HCl 500 mg tablet 500 mg PO BID #14 tabs 11/10/24 Unknown Rx (Cipro) dicyclomine 10 mg capsule 20 mg (2 x 10 mg) PO TIDAC # 20 11/10/24 Unknown Rx CAPSULES metronidazole 500 mg tablet 500 mg PO Q8H #21 tabs Unknown Rx prednisone 20 mg tablet 40 mg (2 x 20 mg) PO DAILY # 8 tabs 11/10/24 Unknown Rx Allergy/AdvReac Type Severity Reaction Status Date / Time Tetanus Vaccines and Toxoid Allergy Swelling Verified 11/09/24 23:12 Social History household members: significant other Smoking Status: Current every day smoker tobacco type: e-cigarettes substance use type: does not use ROS ROS ED Constitutional Constitutional ED: Denies chills or fever(s) Gastrointestinal Gastrointestinal: Reports abdominal pain, diarrhea, nausea and other Details: 1 episode of BRBPR ; Denies vomiting Genitourinary Genitourinary ED: Reports other Details: urgency ; Denies dysuria or hematuria Musculoskeletal Musculoskeletal: Denies arthralgias or myalgias Integumentary Denies rash Neurologic Neurologic: Denies weakness Hematologic/Lymphatic Hematologic/Lymphatic: Denies easy bleeding or easy bruising EXAM Physical Exam Const Vital Signs: 11/09/24 23:12 11/10/24 01:12 11/10/24 02:20 Temperature 98.8 F 98.8 F Temperature Source Oral Pulse Rate 67 78 61 Respiratory Rate 16 18 18 Blood Pressure 124/86 H 116/49 L 110/70 Blood Pressure Mean 98 71 83 Pulse Ox 100 97 98 Oxygen Delivery Method Room Air Room Air Positive well nourished and well developed General Appearance ED: well developed and NAD; Negative for pallor HEENT Reports moist mucous membranes normocephalic Eyes General Eye ED: Negative for pale conjunctiva Neck supple Resp normal respiratory effort and clear to auscultation bilaterally Cardio regular rate and regular rhythm GI Inspection: abdominal distention Palpation: soft and tender LLQ, RLQ and suprapubic; Negative for guarding or rigid Extremity full ROM General Extremety ED: Negative for edema General Extremity: Negative for edema Neuro Sensorium / Orientation: oriented to person, oriented to place and oriented to time Motor Exam: Negative for general weakness Psych mental status grossly normal and thought process normal Skin no wounds General Skin Exam: Negative for jaundice or pallor MDM MDM MDM Narrative Medical decision making narrative: Patient evaluated for worsening abdominal bloating, cramping and diarrhea. Had 1 episode of blood in the stool couple days ago. Does have a history of Crohn's disease. Differential includes was not limited to gastroenteritis, diverticulitis, Crohn's flare, electrolyte imbalance, pancreatitis, cholecystitis and urinary tract infection. Workup including CBC, CMP, lipase and urinalysis largely normal. CT abdomen pelvis obtained which shows moderate diffuse thickening of the ileal small bowel loops increased and probably secondary to inflammatory bowel disease with surrounding inflammatory fat edema and stranding which is increased. There is increase in size of adjacent reactive lymph nodes and mild reactive free fluid of the pelvis. He does have of mild diffuse thickening of the bladder of the wall. Urinalysis is not consistent with infection/cystitis and he denies any sensation of incomplete emptying of the bladder or urinary frequency at baseline. I suspect the inflammation of his colon is causing some mild irritation of the bladder and his urinary urgency. At this time I think patient is overall well-appearing and appropriate candidate for outpatient GI follow-up. Will be started empirically on steroids for presumed Crohn's flare as well as Cipro and Flagyl. Is given first dose in the emergency room. Is given prescription for dicyclomine for symptom control. In the ER was given Toradol, fluids and then dicyclomine for pain control. He declines any opioids while in the emergency room. Is given follow-up for GI and appointment is made for 11/17. He is quite agreeable with this. Likely he will need further follow-up and to be restarted on Biologics for the control of his Crohn's. Given return precautions. Counseled on pushing fluids. Discharged home in stable and improved condition Lab Data Attestation: I reviewed the patient's lab results. Labs: Laboratory Results - last 24 hr 11/09/24 11/10/24 23:40 00:04 WBC 6.5 RBC 4.83 Hgb 13.0 Hct 39.8 L MCV 82.4 MCH 26.9 L MCHC 32.7 RDW Std Deviation 39.4 RDW Coeff of Kuldeep 13.2 Plt Count 418 MPV 8.4 Immature Gran % (Auto) 0.500 Neut % (Auto) 57.2 Lymph % (Auto) 26.5 Mccreary % (Auto) 10.2 H Eos % (Auto) 5.0 Baso % (Auto) 0.6 Absolute Neuts (auto) 3.7 Absolute Lymphs (auto) 1.71 Nucleated RBC % 0 Sodium 138 Potassium 3.9 Chloride 103 Carbon Dioxide 24.6 Anion Gap 10 BUN 12 Creatinine 0.64 L Estim Creat Clear Calc 163.23 Est GFR (MDRD) Non-Af 122 BUN/Creatinine Ratio 18.5 Glucose 96 Calcium 8.7 Total Bilirubin 0.22 AST 17 ALT 11 Alkaline Phosphatase 100 Total Protein 6.5 Albumin 3.4 L Globulin 3.0 Albumin/Globulin Ratio 1.1 Lipase 23 Urine Color Yellow Urine Clarity Clear Urine pH 6.0 Ur Specific [place] 1.020 Urine Protein 15 H Urine Glucose (UA) Normal Urine Ketones Negative Urine Occult Blood Negative Urine Nitrite Negative Urine Bilirubin Negative Urine Urobilinogen Normal Ur Leukocyte Esterase Negative Urine RBC 0 SEEN Urine WBC 0 SEEN Ur Squamous Epith Cells 0-5 SEEN Urine Bacteria RARE Urine Mucus 0 SEEN Radiography Diagnostic Testing: Clinical Impression(s) from Imaging Studies Abdomen/Pelvis CT 11/10/24 23:57 IMPRESSION: Moderate diffuse thickening of the ileal small bowel loops, increased, probably secondary to inflammatory bowel disease. Increased surrounding inflammatory fat edema and stranding. Increase in the size of adjacent reactive lymph nodes with the largest measuring 1.7 cm on the current exam. Mild reactive free pelvic fluid, slightly increased. Uncomplicated colonic diverticulosis. Moderate bilateral chronic changes of sacroiliitis, unchanged. Unchanged mild prostatomegaly. Mild diffuse thickening of the wall of the bladder. Chronic bladder outlet obstruction versus mild cystitis. Reading Location: [place] [address] Discharge Plan Triage Chief Complaint: Abd Pain ED Provider: Paulina Coyne Dx/Rx/DC Orders Clinical Impression: Crohn's colitis Instructions: ED Crohn's Disease Prescriptions: New ciprofloxacin HCl [Cipro] 500 mg tablet 500 mg PO BID Qty: 14 0RF metronidazole 500 mg tablet 500 mg PO Q8H Qty: 21 0RF Continued prednisone 20 mg tablet 40 mg PO DAILY Qty: 8 0RF dicyclomine 10 mg capsule 20 mg PO TIDAC Qty: 20 0RF No Action Humira(CF) Pen 40 mg/0.4 mL pen injector kit 40 mg SUBCUT Rx Instructions: bid month ondansetron 4 mg tablet,disintegrating 4 mg PO Q8H PRN (Reason: nausea and vomiting) Qty: 10 0RF Primary Care Provider: Alfonso Velásquez Referrals: Alfonso Velásquez MD [Primary Care Provider, Family Practice] FriendYobani DO [Med Staff - Active Staff, Gastroenterology] Activity Restrictions/Additional Instructions: You been started on steroids as well as antibiotics for suspected Crohn's flare. This consistent with your history as well as your CT. Your lab work overall was reassuring today. Please follow-up with GI on 11/17 at 11:30 AM. Appointment was made for you. Make sure you are drinking plenty of fluids. If you have worsening symptoms please do not hesitate to return to the emergency room. Print Language: Filipino Disposition Disposition: Home, Self Care Discharge Date/Time: 11/10/24 02:36
[2024-11-10 02:20] VITALS: BP 110/70; PULSE 61; RESP 18; TEMP 37.1; O2SAT 98
--- NOTE | 2024-11-10 23:57 | CT_ITS ---
PROCEDURE: ABDOMEN/PELVIS W IV CONT ONLY 11/10/2024 REASON FOR EXAM: ABDOMINAL PAIN, HISTORY OF CROHN'S TECHNIQUE: Procedure Code: [id number] Modality: CT Procedure: ABDOMEN/PELVIS W IV CONT ONLY Coronal and Sagittal reconstruction series were provided. CONTRAST: OMNIPAQUE 350 VOLUME: 100 mL One or more dose reduction techniques were used (e.g., Automated exposure control, adjustment of the mA and/or kV according to patient size, use of iterative reconstruction technique. RADIATION DOSE SUMMARY: CTDlvol: 8.31 mGy DLP: 455 mGycm COMPARISON: 05/02/2023. FINDINGS: Moderate diffuse thickening of the ileal small bowel loops, increased, probably secondary to inflammatory bowel disease. Increased surrounding inflammatory fat edema and stranding. Increase in the size of adjacent reactive lymph nodes with the largest measuring 1.7 cm on the current exam. Mild reactive free pelvic fluid, slightly increased. Uncomplicated colonic diverticulosis. Moderate bilateral chronic changes of sacroiliitis, unchanged. Unchanged mild prostatomegaly. Mild diffuse thickening of the wall of the bladder. Chronic bladder outlet obstruction versus mild cystitis. The visualized lung bases are unremarkable. Normal liver. Normal gallbladder and extrahepatic biliary system. Normal spleen. Normal pancreas. Normal bilateral adrenal glands. Normal size of the right kidney. There is no right renal mass. There are no right renal calculi. There is no right hydronephrosis. Normal visualized right ureter. Normal size of the left kidney. There is no left renal mass. There are no left renal calculi. There is no left hydronephrosis. Normal visualized left ureter. Normal visualized stomach. Normal colon. The appendix is visualized and appears normal. Normal abdominal aorta. Normal inferior vena cava. Normal retroperitoneum. There is no pelvic mass lesion. CT/Abdomen/Pelvis W IV Cont ONLY IMPRESSION: Moderate diffuse thickening of the ileal small bowel loops, increased, probably secondary to inflammatory bowel disease. Increased surrounding inflammatory fat edema and stranding. Increase in the si ze of adjacent reactive lymph nodes with the largest measuring 1.7 cm on the current exam. Mild reactive free pelvic fluid, slightly increased. Uncomplicated colonic diverticulosis. Moderate bilateral chronic changes of sacroiliitis, unchanged. Unchanged mild prostatomegaly. Mild diffuse thickening of the wall of the bladder. Chronic bladder outlet obst ruction versus mild cystitis. Reading [facility]
== END 2024-11-10 02:36 | disposition home or self-care (01) ==
PROVIDERS: Emergency Provider Emergency Medicine; PCP Family Medicine; Visit Provider Emergency Medicine
DX: K50.918 Crohn's disease, unspecified, with other complication (principal); F17.290 Nicotine dependence, other tobacco product, uncomplicated
CPT/HCPCS: 74177; 80053; 81001; 83690; 85025; 96361; 96374; 96376; 99284; Q9967; A4216

== ENCOUNTER → 2024-11-17 | Outpatient (CLI) | payer BC, SELFPAY ==
[2024-11-17 12:54] LABS: Hematocrit 40.4 % (40-54); Hemoglobin 13.3 g/dL (13.0-16.5); Immature Granulocytes Count 0.160 X10^3/uL (0.0-0.0); Mean Corp Hgb Conc 32.9 g/dL (32-36); Mean Corpuscular Volume 83.0 fL (80-94); Mean Platelet Vol. 8.4 fl (6.2-12.0); NRBC Flagged by Analyzer 0 % (0-5); Platelet Count 435 K/mm3 (150-450); RBC Distribution Width CV 13.9 % (11.6-14.6); RBC Distribution Width SD 40.7 fl (35.1-43.9); Red Blood Count 4.87 M/mm3 (4.6-6.2); White Blood Count 12.4 K/mm3 (4.4-11.0)
[2024-11-17 14:25] LABS: AST(SGOT) 25 U/L (<=37); Alanine Aminotransfer ALT/SGPT 27 U/L (<=46); Albumin, Serum 3.7 g/dL (3.5-5.0); Alkaline Phosphatase 85 U/L (40-129); Anion Gap 10 (5-15); BUN 6 mg/dL (4-19); BUN/Creat Ratio 9.3 RATIO (10-20); CRP 11.00 mg/L (0.0-3.0); Calcium,Total 8.9 mg/dL (7.6-11.0); Carbon Dioxide 26.1 mmol/L (21.0-32.0); Chloride 102 mmol/L (98-108); Globulin 3.1 g/dL (2.2-4.2); Glucose 87 mg/dL (70-99); Potassium 3.8 mmol/L (3.3-5.1)
[2024-11-20 05:07] LABS: HEPATITIS B SURFACE AG Negative (Negative); Hep C Antibodies Non Reactive (Non Reactive); QNTFERON TB Mitogen Value > 10.00 IU/mL (.); QNTFERON TB Nil Value 0.11 IU/mL (.); QNTFERON TB1+ Ag Value 0.13 IU/mL (.); QNTFERON TB2+ Ag Value 0.20 IU/mL (.); QNTIFERON TB Positive Criteria Negative (Negative)
== END | disposition home or self-care (01) ==
LOC: LAB 12:30
PROVIDERS: PCP Family Medicine; Referring Provider Student in an Organized Health Care Education/Training Program; Visit Provider Student in an Organized Health Care Education/Training Program
DX: K50.10 Crohn's disease of large intestine without complications (principal)
CPT/HCPCS: 36415; 80053; 80074; 85025; 86140; 86480